=== PATIENT | male | born 1980 | race Caucasian/White ===

== ENCOUNTER → 2018-04-03 14:25 | Outpatient (CLI) | payer OTHER, SELFPAY ==
--- NOTE | 2018-04-03 14:29 | RAD_ITS ---
STUDY: X-RAY - LUMBAR SPINE REASON FOR EXAM: Male, 37 years old. Left-sided low back pain. No history of trauma. TECHNIQUE: 5 view(s) of the lumbar spine were obtained. COMPARISON: 3 views of the lumbar spine November 11, 2015. FINDINGS: Normal lumbar lordosis. There is no substantial scoliosis. There is a normal alignment of the vertebrae. There are borderline to mild foreshortened L5 pedicles and slight retrolisthesis of L5 relative to S1. Otherwise, normal vertebral bodies and endplates. Normal disc space heights. There is no demonstrated osseous destructive lesion nor fracture. Normal visualized facet joint spaces. The soft tissue structures are unremarkable. RAD/Lumbar Spine 2 or 3 Views IMPRESSION: Borderline to mild shortening of the pedicular length at L5 with minor resultant narrowing of the spinal canal at that level otherwise normal lumbar spine. Electronically Signed: Pablito Reyes MD at 14:58 EST , Service support ,
== END ==
PROVIDERS: Family Provider Family Medicine; PCP Family Medicine; Referring Provider Physician Assistant; Visit Provider Physician Assistant
DX: M54.5 Low back pain (principal)
CPT/HCPCS: 72100

== ENCOUNTER 2019-06-21 03:11 | Emergency (ER) | payer OTHER, SELFPAY ==
[2019-06-21 03:12] VITALS: BP 125/76; PULSE 67; RESP 17; TEMP 36.4; O2SAT 96; BMI 27.3
--- NOTE | 2019-06-21 03:24 | EKG12_ITS ---
Test Reason : CP Blood Pressure : / mmHG Vent. Rate : 065 BPM Atrial Rate : 065 BPM P-R Int : 178 ms QRS Dur : 106 ms QT Int : 388 ms P-R-T Axes : 040 006 017 degrees QTc Int : 403 ms Sinus rhythm with marked sinus arrhythmia Incomplete right bundle branch block Borderline ECG Confirmed by MINA HOWARD, ALTON ([id number]), publishing editor SHAW KING ([id number]) on 06/22/2019 1:20:08 PM Referred By: HODA Confirmed By:REGGIE ENRIQUEZ MD
--- NOTE | 2019-06-21 03:25 | RAD_ITS ---
STUDY: X-RAY CHEST REASON FOR EXAM: Male, 38 years old. Upper chest and left arm pain. TECHNIQUE: PA and lateral chest. COMPARISON: None. FINDINGS: The lungs are clear and expanded. There is no demonstrated pleural abnormality. No pneumothorax. Normal size heart. Normal mediastinum and jenny. Normal visualized pulmonary arteries. Normal visualized aortic arch and descending thoracic aorta. Normal visualized thoracic spine. Normal visualized ribs, clavicles, and shoulders. There is no demonstrated abnormality of the visualized soft tissue structures of the upper abdomen. RAD/Chest PA and Lateral IMPRESSION: Normal x-ray examination of the chest. Electronically Signed: Loc Paez MD at 3:56 EST , Service support ,
--- NOTE | 2019-06-21 03:25 | ED.DCSUM_ITS ---
History of Present Illness Chief Complaint: Chest Pain Informant: Patient Onset: Hours - 1-2 Activity at onset: Sleep Timing: Continuous - gradually resolved over an hour or so Quality: Pain Location: Substernal Current Severity: Gone Maximum Severity: Severe Worsened By: Nothing. Not Worsened By: Movement of Arm, Movement of Torso, Breathing, Coughing Relieved By: Nothing Associated Symptoms: - - LUE pain. Negative for: Nausea, Vomiting, Diaphoresis, Dyspnea, Cough, Lightheadedness, Palpitations Narrative: Patient states he woke up with this discomfort. He has never had it before. He is healthy although he smokes. He states as his chest discomfort started resolving, his left elbow/arm started hurting. Now, his left upper extremity is mildly bothersome but his chest discomfort is gone. He had no shortness of breath. No recent leg pain or swelling. No recent travel, hospitalization, surgery, no history of DVT or PE. No recent illnesses. No recent injury. No recent overuse. No late meal tonight. No known history of reflux or peptic ulcer disease. He states his paternal grandfather had a heart disease fairly young, his father also had heart disease but did not have any major issues until he was in his 60s. Prior Similar Symptoms: No Recent Illness/Hospitalization: No CVD Risk Factors: Smoking. Negative for: Hypertension, Diabetes, Hype rcholesterolemia, Family History 1' </=55 PE Risk Factors: Negative for: Recent Travel/Surgery, Recenet Immobilization, Prior DVT or PE, Cancer, OCP + Smoking + >/=35 Past Medical History - Allergies and Home Meds Allergies/Adverse Reactions: Allergies No Known Allergies Allergy (Verified 04/03/18 14:12) Primary Care Physician: Zana Abernathy DO [Primary Care Provider] - Past Medical History: None Lives: With Family Smoking Status: Current every day smoker Drugs: None Review of Systems General: Denies: Chills, Fever, Malaise, Sweats Eyes: Denies: Visual changes - bilaterally, Diplopia ENT: Denies: Rhinorrhea, Sore throat Cardiovascular: Reports: Chest pain. Denies: Palpitations, Heart racing Respiratory: Denies: Dyspnea, Cough, Dyspnea on exertion Gastrointestinal: Denies: Abdominal pain, Nausea, Vomiting, Diarrhea, Melena, Hematochezia Genitourinary: Denies: Dysuria, Hematuria, Frequency Musculoskeletal: Reports: Extremity Pain. Denies: Back pain, Swelling Skin: Denies: Rash, Wounds Neurological: Denies: Headache, Weakness, Numbness Physical Exam Vital Signs/Narrative: Vital Signs Temp Pulse Resp BP Pulse Ox 06/21/19 03:12 97.5 F L 67 17 125/76 H 96 Inital Vital Signs reviewed: Yes General: Well nourished, Well developed, No Acute Distress Head: Normocephalic, Atraumatic Eyes: Perrl, EOMI ENT: Moist mucous membranes, No rhinorrhea Neck: Supple, Nontender Cardiovascular: Regular rate, Regular rhythm, No murmurs, - - equal bilat 2+/4 radial pulses Respiratory: No distress, CTA bilaterally, Chest nontender Abdomen: Soft, Nontender, Nondistended, Normal bowel sounds Back: Nontender, Normal Inspection Extremities: Nontender, No edema. Negative for: Calf Tenderness Skin: Normal color, No rash, No Trauma Neurological: Alert, Oriented x3, Cranial nerves II-XII grossly intact, Normal Strength, Normal Sensation, Normal Gait Psychological: Normal affect, Normal Mood Diagnostic/Tx/Re-eval Impressions Chest X-Ray 06/21/19 03:25 IMPRESSION: Normal x-ray examination of the chest. Electronically Signed: Loc Paez MD at 3:56 EST , Service support , 06/21/19 03:25 Chest PA and Lateral [RAD] Stat Laboratory Results 06/21/19 06/21/19 03:30 03:30 WBC 5.5 RBC 4.40 L Hgb 14.4 Hct 41.5 MCV 94.3 H MCH 32.7 H MCHC 34.7 RDW Std Deviation 40.5 RDW Coeff of Zee 11.6 Plt Count 250 MPV 9.4 Immature Gran % (Auto) 0.200 Neut % (Auto) 37.6 L Lymph % (Auto) 47.5 H [place] % (Auto) 12.5 H Eos % (Auto) 1.5 Baso % (Auto) 0.7 Absolute Neuts (auto) 2.1 Absolute Lymphs (auto) 2.59 Nucleated RBC % 0 Sodium 140 Potassium 3.8 Chloride 107 Carbon Dioxide 29.0 Anion Gap 4 L BUN 15 Creatinine 1.02 Estim Creat Clear Calc 101.39 Est GFR (MDRD) Af Amer 105 Est GFR (MDRD) Non-Af 87 BUN/Creatinine Ratio 14.7 Glucose 107 H Calcium 8.8 Troponin I < 0.015 - Rhythm Strip Rhythm Strip: Sinus Rhythm Rate: 65 Ectopy: None - EKG Initial EKG Interpretation: Sinus Rhythm, No Acute Injury Pattern, - - RSR'. otherwise normal EKG. Prior: No Prior Treatment: GI Cocktail Repeat Eval: Pain Free JONATHON Risk: No Positive JONATHON Elements Score: 0 - Medical Decision Making After GI cocktail patient felt better still. He has no symptoms right now except for an occasional mild tingling in his hand. I do not think this is acute coronary syndrome. His only risk factor is smoking. He is a healthy 38-year-old. His EKG is normal. His heart score is 2, 1 for history and 1 for risk. His PERC score is 0. We discussed plan from here including a delta troponin. The patient does not want to wait 3 hours for a repeat troponin. His is a single needle operator here. She is requesting to do the troponin by drawing it herself. Patient unfortunately does not have a PCP. I suspect it will be negative, further lowering his risk of myocardial event prior to following up. 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 The result will come back to the emergency department, and myself or the morning physician will ensure that it is negative. In the meantime, my suspicion is that this is actually esophageal in etiology. It could be reflux, spasm, or other esophageal problems. His mediastinum was very narrow and his chest x-ray was normal. I do not think he needs a CT scan at this time. We will place him on a two-week course of a PPI and advised that he follow-up, his will have him follow-up with her doctor, Dr. Abernathy. They are comfortable with this overall plan. ED Disposition - Plan for ED Patient: Disposition: Home or Assisted Living Diagnosis: Chest pain, unspecified Instructions: CHEST PAIN, NonCardiac Prescriptions: Pantoprazole Sodium [Protonix] 40 mg PO DAILY #14 tab Transmission Status: Pending to [facility][id number] Referrals: Zana Abernathy DO [Primary Care Provider] - 1-2 Weeks
[2019-06-21] MEDS: Mag Hydrox/Al Hydrox/Simeth 30 ML UDC PO (03:28)
[2019-06-21 03:33] LABS: Absolute Lymphocyte Count 2.59 X10^3/uL (0.83-4.51); Absolute Neutrophil Count 2.1 X10^3/uL (2.0-7.7); Basophil# 0.04 X10^3/uL; Basophil% 0.7 % (0-1); Eosinophil# 0.08 X10^3/uL; Eosinophils% 1.5 % (0-5); Hematocrit 41.5 % (40-54); Hemoglobin 14.4 g/dL (13.0-16.5); Lymphocyte # 2.59 X10^3/ul (4.0); Lymphocyte % 47.5 % (19-41); Mean Corp Hgb Conc 34.7 g/dL (32-36); Mean Corpuscular Hgb 32.7 pg (27.0-32.0); Mean Corpuscular Volume 94.3 fL (80-94); Mean Platelet Vol. 9.4 fl (6.2-12.0); Monocyte# 0.68 X10^3/uL; Monocyte% 12.5 % (0-10); NRBC Flagged by Analyzer 0 % (0-5); Neutrophil # 2.05 X10^3/uL (2.7-7.7); Neutrophil % 37.6 % (47-70); Platelet Count 250 K/mm3 (150-450); RBC Distribution Width CV 11.6 % (11.6-14.6); RBC Distribution Width SD 40.5 fl (35.1-43.9); White Blood Count 5.5 K/mm3 (4.4-11.0)
[2019-06-21 03:50] LABS: Anion Gap 4 (5-15); BUN 15 mg/dL (7-18); BUN/Creat Ratio 14.7 RATIO (10-20); Calcium,Total 8.8 mg/dL (8.5-10.1); Chloride 107 mmol/L (98-107); Creatinine, Serum 1.02 mg/dL (0.70-1.30); EST Glomerular Filtration Rate 87 mL/min (>60); Est Glom Filt Rate - Afr Amer 105 mL/min (>60); Estimated Creatinine Clearance 101.39 ml/min; Glucose 107 mg/dL (74-106); Potassium 3.8 mmol/L (3.5-5.1); Sodium Level 140 mmol/L (136-145)
[2019-06-21 04:23] VITALS: BP 123/73; PULSE 62; RESP 18; O2SAT 97
== END 2019-06-21 04:24 | disposition home or self-care (01) ==
PROVIDERS: Emergency Provider Emergency Medicine; PCP Family Medicine
DX: R07.89 Other chest pain (principal); R20.2 Paresthesia of skin; F17.200 Nicotine dependence, unspecified, uncomplicated
CPT/HCPCS: 36415; 71046; 80048; 84484; 85025; 93005; 99285; A4216

== ENCOUNTER 2020-06-13 19:44 | Emergency (ER) | payer OTHER, SELFPAY ==
[2020-03-20 17:03] VITALS: BMI 27.8
[2020-06-13 19:45] VITALS: BP 139/70; PULSE 80; RESP 15; TEMP 36.5; O2SAT 96; BMI 26.5
--- NOTE | 2020-06-13 20:00 | ED.VISSUMM ---
- ER Visit Summary Date of Service: 06/13/20 Chief Complaint: Swelling right side of jaw History of Present Illness: The patient is a 39 M with no primary care physician or dentist. He reports that at 3:00 this afternoon he was eating on the way home from work and had a large amount of swelling to the right mandibular angle. He reports that he did not have any pain with this. It seemed to improve, but not resolved. Then when he was eating dinner it swelled up even more. He continues to deny any pain. He had denies dental pain. No hot or cold sensitivity. Review of systems: General: No fever, chills, cold sweats. Cardiovascular: No chest pain, palpitations. Respiratory: No cough, shortness of breath, dyspnea on exertion. Gastrointestinal: No abdominal pain, nausea, vomiting, diarrhea, melena, or hematochezia. Genitourinary: No dysuria, frequency, hematuria. Skin: No rash. Neuro: No headache, numbness, weakness. Physical Examination: Vitals: Stable. Afebrile. General: Well-nourished and well-developed. Head: Normocephalic atraumatic. HEENT: Mildly swollen right submandibular gland. I am unable to appreciate a stone in the sublingual salivary duct. However, as this was palpated I felt a pop and I suspect that there is some sludge present. Neck: Supple, no lymphadenopathy. No JVD. Nontender. Cardiovascular: Regular rate and rhythm. No murmurs. Respiratory: No respiratory distress. Clear to auscultation bilaterally. Abdominal: Soft, nontender, nondistended, normal bowel sounds. No guarding, rebound, or peritoneal signs. Back: Nontender. Extremities: Nontender, no edema. Skin: Normal color, no rash. Neurologic: Alert and oriented ?3. Cranial nerves II through XII are intact. Normal strength and sensation. Psych: Normal affect. Emergency Department Course and Treatment: Patient is resting comfortably and refused pain medications. He has no evidence of a dental abscess and his history is not consistent with this. Clinically I suspect that he has submandibular sialoadenitis. Treatment Plan: Patient will be discharged instructions to use lemon drops and warm compresses to the area. Follow-up with Dr. Oviedo in 3 to 5 days if not improving. Return to the emergency department for any worsening symptoms. Disposition: To home in improved and stable condition. Impression: 1. Right submandibular sialoadenitis. This note was generated with [employer] dictation software. It may contain incorrect words, spelling, and punctuation that were not noted in review of the chart prior to signing ED Disposition - Plan for ED Patient: Instructions: ED Salivary Gland Stones Referrals: Drew Oviedo MD [STAFF PHYSICIAN] - 3-5 Days if not improving
== END 2020-06-13 20:19 | disposition home or self-care (01) ==
LOC: ED 20:19
PROVIDERS: Emergency Provider Emergency Medicine; PCP Internal Medicine
DX: K11.20 Sialoadenitis, unspecified (principal)
CPT/HCPCS: 99282

== ENCOUNTER 2020-06-16 03:06 | Observation (INO) | payer OTHER, SELFPAY ==
[2020-06-16] VITALS (14 sets, daily range): BP systolic 91–139; BP diastolic 48–84; PULSE 60–140; RESP 14–20; TEMP 36.4–37.9; O2SAT 95–96; BMI 26.9; BMI 27.4; BMI 27.5
--- NOTE | 2020-06-16 03:39 | EKG12_ITS ---
Test Reason : SYNCOPE Blood Pressure : / mmHG Vent. Rate : 086 BPM Atrial Rate : 086 BPM P-R Int : 176 ms QRS Dur : 092 ms QT Int : 334 ms P-R-T Axes : 052 022 044 degrees QTc Int : 399 ms Normal sinus rhythm Probably Brugata Syndrome Abnormal ECG When compared with ECG of 21-JUN-2019 03:14, No significant change was found Confirmed by ERNESTINE HOWARD, RADHA ([id number]), design editor SHAW KING ([id number]) on 06/17/2020 11:04:43 AM Referred By: JOHANNY Confirmed By:RADHA SINHA MD
--- NOTE | 2020-06-16 03:39 | EKG12_ITS ---
Test Reason : SYNCOPE Blood Pressure : / mmHG Vent. Rate : 092 BPM Atrial Rate : 092 BPM P-R Int : 172 ms QRS Dur : 098 ms QT Int : 336 ms P-R-T Axes : 056 020 040 degrees QTc Int : 415 ms Normal sinus rhythm Probably Brugata Syndrome Abnormal ECG When compared with ECG of 16-JUN-2020 03:13, MANUAL COMPARISON REQUIRED, DATA IS UNCONFIRMED Confirmed by ERNESTINE HOWARD, RADHA ([id number]), editor managing director SHAW KING ([id number]) on 06/17/2020 11:04:16 AM Referred By: JOHANNY Confirmed By:RADHA SINHA MD
--- NOTE | 2020-06-16 03:39 | RAD_ITS ---
pt woke up not feeling well. Syncopal episode when walking to the bathroom.states he had some sob and cp when waking. states he thinks he has an irregular heartbeat EXAMINATION/TECHNIQUE: XR Chest 2 Views: COMPARISON: June 21, 2019 FINDINGS: LINES/DEVICES: None. LUNGS: No consolidation, edema or effusion. No pneumothorax. MEDIASTINUM AND CARDIOVASCULAR STRUCTURES: Cardiac silhouette not enlarged. Central airways and mediastinal contour are unremarkable. BONES AND SOFT TISSUES: Unremarkable. RAD/Chest PA and Lateral IMPRESSION: No radiographic evidence of acute cardiopulmonary disease. at 0402 Reported and signed by: Mel Macedo DO Electronically Signed: Mel Macedo DO at 4:01 EST Tel , Service support ,
--- NOTE | 2020-06-16 03:40 | ED.DCSUM_ITS ---
History of Present Illness Chief Complaint: Syncope Informant: Patient Narrative: Patient presents after syncopal episode. He stated he woke up and felt lightheaded. He went to the bathroom and had a syncopal episode. No injury. This was witnessed by his . Went back into the bedroom and had another syncopal episode. called EMS who brought him in. He states he does not have any chest pain or shortness of breath. He stated he has some mild discomfort in the front part of his neck where his trachea is at. He is never felt that for. Denies any nausea. No diaphoresis. Denies any cardiac history. No previous stress test or heart cath. Had a negative cardiac work-up appr oximately a year ago in the emergency department. He does smoke cigarettes for the last 10 years. No early heart attacks in family members under the age of 50. No other acute coronary syndrome risk factors. Denies any PE or dissection risk factors. Denies any pain time other than the sensation in his neck Past Medical History - Allergies and Home Meds Allergies/Adverse Reactions: Allergies No Known Allergies Allergy (Verified 06/13/20 19:48) Primary Care Physician: Cristina Adams MD [Primary Care Provider] - Prior records reviewed: Yes Past Medical History: - - Back pain, Smoking Status: Former smoker Review of Systems General: Denies: Chills, Fever, Sweats Eyes: Denies: Visual changes - bilaterally, Diplopia ENT: Denies: Rhinorrhea, Sore throat Cardiovascular: Denies: Chest pain, Palpitations Respiratory: Denies: Dyspnea, Cough, Dyspnea on exertion Gastrointestinal: Denies: Abdominal pain, Nausea, Vomiting, Diarrhea, Melena, Hematochezia Genitourinary: Denies: Dysuria, Hematuria, Frequency Musculoskeletal: Reports: Neck pain - See HPI. Denies: Back pain, Extremity Pain Skin: Denies: Rash, Wounds Neurological: Denies: Headache, Weakness, Numbness Physical Exam Vital Signs/Narrative: Vital Signs Temp Pulse Resp BP Pulse Ox 06/16/20 03:09 97.8 F 95 20 H 139/83 H 96 General: Well nourished, Well developed, No Acute Distress Head: Normocephalic, Atraumatic Eyes: Perrl, EOMI ENT: Moist mucous membranes, No rhinorrhea Neck: Supple, Nontender Cardiovascular: Regular rate, Regular rhythm, No murmurs Respiratory: No distress, CTA bilaterally, Chest nontender Abdomen: Soft, Nontender, Nondistended, Normal bowel sounds Back: Nontender, Normal Inspection Extremities: Nontender, No edema Skin: Normal color, No rash Neurological: Alert, Oriented x3, Cranial nerves II-XII grossly intact, Normal Strength, Normal Sensation Psychological: Normal affect, Normal Mood Diagnostic/Tx/Re-eval - Medical Decision Making Initial EKG obtained upon arrival shows sinus rhythm at a rate of 86. RSR incomplete right bundle branch block noted unchanged from prior except for V2 shows ST elevation no reciprocal depressions. No other leads show ST elevation to suggest a STEMI. Repeat EKG approximately 10 minutes later was used to confirm the initial EKG. Also noted normal sinus rhythm at a rate of [address] elevation in V2 only. Incomplete right bundle noted. He has had the right bundle in the past. No history of Brugada syndrome. This was immediately faxed to the associate account manager on-call Dr. Wood. We are not going to call an acute STEMI at this time. Patient underwent cardiac work-up including lab work and chest x- ray. Lab work shows negative troponin. Chest x-ray shows nothing acute by my interpretation. Radiologist agrees. CBC and BMP showed nothing acute. CT angio will be obtained after giving IV fluids to rule out PE or dissection. Discussed the hospitalist patient will be admitted ED Disposition - Plan for ED Patient: Disposition: Acute Care [facility] Diagnosis: Syncope, ST segment changes on electrocardiogram
[2020-06-16 03:47] LABS: Absolute Lymphocyte Count 1.17 X10^3/uL (0.83-4.51); Basophil# 0.03 X10^3/uL; Basophil% 0.3 % (0-1); Eosinophil# 0.05 X10^3/uL; Eosinophils% 0.4 % (0-5); Hematocrit 44.1 % (40-54); Hemoglobin 15.2 g/dL (13.0-16.5); Lymphocyte # 1.17 X10^3/ul (4.0); Lymphocyte % 10.1 % (19-41); Mean Corp Hgb Conc 34.5 g/dL (32-36); Mean Corpuscular Hgb 32.2 pg (27.0-32.0); Mean Corpuscular Volume 93.4 fL (80-94); Mean Platelet Vol. 9.6 fl (6.2-12.0); Monocyte# 0.33 X10^3/uL; Monocyte% 2.8 % (0-10); NRBC Flagged by Analyzer 0 % (0-5); Neutrophil # 9.97 X10^3/uL (2.7-7.7); Platelet Count 247 K/mm3 (150-450); RBC Distribution Width CV 11.5 % (11.6-14.6); RBC Distribution Width SD 39.5 fl (35.1-43.9); Red Blood Count 4.72 M/mm3 (4.6-6.2); White Blood Count 11.6 K/mm3 (4.4-11.0)
[2020-06-16 04:16] LABS: Anion Gap 5 (5-15); BUN 23 mg/dL (7-18); Calcium,Total 8.9 mg/dL (8.5-10.1); Chloride 103 mmol/L (98-107); Creatinine, Serum 1.21 mg/dL (0.70-1.30); EST Glomerular Filtration Rate 71 mL/min (>60); Est Glom Filt Rate - Afr Amer 86 mL/min (>60); Estimated Creatinine Clearance 84.63 ml/min; Glucose 112 mg/dL (74-106); Potassium 3.6 mmol/L (3.5-5.1); Sodium Level 137 mmol/L (136-145)
--- NOTE | 2020-06-16 04:19 | CT_ITS ---
SYNCOPE/? PE. No chest pain or SOB. Pt states Tquot;doesn't feel wellTquot; TECHNIQUE:CTA Chest WO/W Contrast Injection A CT of the chest was performed following the administration of ml 100mL Isovue-370 Thin axial reconstructed images were performed through the pulmonary vasculature as per the routine pulmonary embolus protocol.MIP and mutiplanar reconstructions A dose optimization technique was used during the scan # of images including paperwork:[id number] Comparison: Chest radiograph June 16, 2020 FINDINGS: No aneurysm or dissection. Pulmary arteries: No evidence of pulmonary emboli The heart is not enlarged. No evidence of right heart strain. No pericardial effusion. No pleural effusion. No axillary or mediastinal lymphadenopathy is identified. No hilar adenopathy. The thyroid gland is unremarkable The lungs are clear. Pneumpothorax: none The trachea and central airways appear patent . Limited views of the upper abdomen unremarkable No acute osseous abnormality. Hemangioma is seen within the T5 vertebral body CT/CTA Chest W/WO Contrast IMPRESSION: No aneurysm, dissection, or pulmonary embolism No evidence of right heart strain The lungs are clear Hemangioma is seen within the T5 vertebral body Individualized dose optimization techniques were used for this CT. at 0503 Reported and signed by: Mel Macedo DO Electronically Signed: Mel Macedo DO at 5:02 EST Tel , Service support ,
[2020-06-16 04:50] LABS: Magnesium 1.6 mg/dL (1.6-2.6)
--- NOTE | 2020-06-16 04:54 | PCM.HP.STD ---
Problem List (1) Back problem Status: Chronic (2) Chronic back pain Status: Chronic (3) ST segment changes on electrocardiogram Status: Acute (4) Syncope Status: Acute History of Present Illness Date of Admission: 06/16/20 Chief Complaint: Syncope The patient is a 39 year old M with no significant medical history who presents emergency department with syncope. While he was sleeping his baby cried and he woke up. Patient was feeling lightheaded and he had a feeling like something was stuck in his lower neck; same feeling he used to have when he was a smoker. Patient went to the bathroom. While in the bathroom he passed out. The next thing he remembers was that he he was sitting on the floor. His came to the bathroom and he helped help him into the bedroom. Patient then laid on the floor in the bedroom. While lying on the floor in the bedroom he passed out again. At emergency department EKG was concerning so emergent department doctor discussed the case with cardiology. Patient reports that his paternal grandfather who he did not meet probably in his 40s from a heart attack, Also patient's father had a known heart attack. Later on in the cause of his (patient's father) life he was found in the couch . Patient father at 68. Patient has room to his father from heart attack. Of note patient was at emergency department on 06/13/2020 for right facial swelling and he was diagnosed with right submandibular sialadenitis which resolved with lemon drops and drinking lots of water. Past Medical History Past Medical History (Chronic Problems): Chronic Problems (Last Reviewed 06/16/20 @ 05:[address] Ronnie Elizabeth MD) Chronic back pain (Chronic) Back problem (Chronic) Medical History: Medical History (Last Reviewed 06/16/20 @ 05:[address] Ronnie Elizabeth MD) Back problem (Chronic) M53.9 Allergies No Known Allergies Allergy (Verified 06/13/20 19:48) Home Medications: Ambulatory Orders Medication Instructions Recorded NK 06/13/20 Surgical History: Surgical History (Last Updated 03/18/20 @ 11:48 by Kyae Hand) History of shoulder surgery Z98.890 left, x 2 2002, 2006 Smoking Status: Former smoker - *Family History Maternal Family History: Family History (Last Reviewed 06/16/20 @ 05:[address] Ronnie Elizabeth MD) Father Hypertension Myocardial infarction Hyperlipemia Grandmother Alcoholism Review of Systems Constitutional: Denies: Chills, Fever, Weight Change HEENT: Denies: Head Aches, Sinus Congestion, Sinus Drainage Cardiovascular: Reports: Light Headedness. Denies: Chest Pain, Palpitations Respiratory: Denies: Cough, Shortness of breath at rest, Sputum production Gastrointestinal: Denies: Abdominal Pain, Nausea, Vomiting Genitourinary: Denies: Dysuria Musculoskeletal: Denies: Joint Pain, Joint Tenderness Skin: Denies: Rash, Wounds Neurological: Denies: Numbness, Tingling, Focal weakness Psychiatric: Denies: Anxiety, Depression, Homicidal Ideations, Suicidal Ideations Hematologic/ Lymphatic: Denies: Easy Bruising, Easy Bleeding VTE Information - Inpt Only VTE Present on Admission: No VTE Mechan Device Prophylaxis: None VTE Pharm Prophylaxis ordered?: No Reason prophylaxis not ordered:: Treatment Not Indicated - Low risk Patient Problems: Active and Suspected Problems (Last Reviewed 06/16/20 @ 05:[address] Ronnie Elizabeth MD) Syncope (Acute) ST segment changes on electrocardiogram (Acute) - Physical Exam Vitals/I&O's: Vital Signs Temp Pulse Resp BP Pulse Ox 97.8 F 95 20 H 139/83 H 96 06/16/20 03:09 06/16/20 03:09 06/16/20 03:09 06/16/20 03:09 06/16/20 03:09 Oxygen Delivery Method Room Air Weight: 85.2 kg Body Mass Index (BMI) 26.9 General: Alert, Oriented x3, Cooperative HEENT: Atraumatic, PERRLA, EOMI, Normocephalic Neck: Supple, No JVD, Negative Carotid Bruits Lungs: Clear to auscultation, Normal air movement Cardiovascular: Regular rate, No murmurs Abdomen: Bowel Sounds Present, Soft, Non Tender Extremities: No edema, Capillary Refill Less than 3 Seconds Skin: No rashes, No breakdown Musculoskeletal: No Tenderness to Palpation of Joints or Extremities Neurological: Cranial nerves II-XII grossly intact Psych/Mental Status: Anxious Laboratory Results 06/16/20 03:30: Magnesium 1.6 06/16/20 03:35: WBC 11.6 H, RBC 4.72, Hgb 15.2, Hct 44.1, MCV 93.4, MCH 32.2 H, MCHC 34.5, RDW Std Deviation 39.5, RDW Coeff of [place] 11.5 L, Plt Count 247, MPV 9.6, Immature Gran % (Auto) 0.400, Neut % (Auto) 86.0 H, Lymph % (Auto) 10.1 L, [place] % (Auto) 2.8, Eos % (Auto) 0.4, Baso % (Auto) 0.3, Absolute Neuts (auto) 10.0 H, Absolute Lymphs (auto) 1.17, Nucleated RBC % 0 06/16/20 03:35: Sodium 137, Potassium 3.6, Chloride 103, Carbon Dioxide 29.0, Anion Gap 5, BUN 23 H, Creatinine 1.21, Estim Creat Clear Calc 84.63, Est GFR (MDRD) Af Amer 86, Est GFR (MDRD) Non-Af 71, BUN/Creatinine Ratio 19.0, Glucose 112 H, Calcium 8.9, Troponin I < 0.015 Current Medications Sodium Chloride () 1,000 mls @ 1,000 mls/hr IV .Q1H ONE Stop: 06/16/20 05:18 Assessment/Plan All Active Problems (Last Reviewed 06/16/20 @ 05:[address] Ronnie Elizabeth MD) Syncope (Acute) ST segment changes on electrocardiogram (Acute) The patient is a 39 year old M with no significant medical history who presents emergency department with syncope and collapse; and with concerning EKG and family history of heart disease. Syncope EKG independently reviewed showed slanting of ST segments in leads V1 and elevation of J-point in lead V2. Previous EKG was reviewed. Previous EKG showed mild R1 R2 in leadsV1 and some pronounced are R1R2 in leads V2. Impression of chest x-ray by radiologist: No radiographic evidence of acute cardiopulmonary disease. Actual checks x-ray image was independently reviewed. I agree with radiologist interpretation. Per emergent department doctor cardiology recommended echocardiogram and for inpatient cardiology consult. Inpatient cardiology consult ordered. Echocardiogram ordered. Initial troponin was negative. Trend troponin Orthostatic vitals per protocol CTA chest ordered in the ED did not show any PE or atrial dissection. Hemangioma Chest CTA showed hemangioma. No intervention at this time. DVT prophylaxis Low risk. Encourage to ambulate. OBSV E&M: [id number] Initial observation care L2
[2020-06-16] MEDS: 0.9% Normal Saline 1,000 ML 1000 ML IV (04:59)
--- NOTE | 2020-06-16 05:27 | ECHOD_ITS ---
Reason For Study: Syncope Procedure This was a 2D Doppler, Color Flow transthoracic echocardiogram. Exam performed portable in patient room. Left Ventricle Normal LV size. Left ventricular systolic function is normal. The estimated ejection fraction is 55 %. No regional wall motion abnormalities noted. Right Ventricle Normal RV size. Normal systolic function. Atria Normal left atrium. Normal right atrium. Mitral Valve Normal mitral valve. Tricuspid Valve Normal tricuspid valve. Mild tricuspid valve insufficiency. Pulmonary artery systolic pressure is 25 mmHg. Aortic Valve Normal aortic valve. Trisinus/trileaflet aortic valve. Pulmonic Valve Normal pulmonic valve. Great Vessels Normal aortic root. The pulmonary artery is normal size. Normal inferior vena cava. Pericardium/Pleural No pericardial effusion. MMode/2D Measurements & Calculations LVIDd: 3.9 cm IVSd: 1.2 cm Ao root diam: 3.5 cm LVIDs: 2.9 cm LVPWd: 1.2 cm RVDd: 3.5 cm FS: 25.4 % LAV(MOD-bp): 37.7 ml LA A4 area: 14.9 cm2 LA dimension(2D): 3.0 cm LAV(MOD-bp) Indexed: 18.6 ml/m2 LAV(MOD-sp2): 36.2 ml LAV(MOD-sp4): 39.6 ml RA A4 area: 12.0 cm2 Doppler Measurements & Calculations MV A max [place]: 58.5 cm/sec Lat Peak E' [place]: 13.8 cm/sec Med Peak E' [place]: 8.3 cm/sec Ao V2 max: 119.1 cm/sec LV V1 max: 103.7 cm/sec PA V2 max: 80.1 cm/sec Ao max P.7 mmHg LV V1 max P.3 mmHg TR max [place]: 230.6 cm/sec TR max P.3 mmHg Interpretation Summary Normal LV size. Left ventricular systolic function is normal. The estimated ejection fraction is 55 %. Pulmonary artery systolic pressure is 25 mmHg. Structurally normal valves. Ordering Physician: Ronnie Elizabeth Referring Physician: Cristina Adams Performed By: Love Wood RDCS
--- NOTE | 2020-06-16 05:44 | PCS.PANDOC ---
PANDEMIC DOCUMENTATION INITIATED: Date: 06/16/20 Time: 05
[2020-06-16] MEDS: 0.9% Normal Saline 1,000 ML 150 ML IV ×2 (06:33→15:39)
[2020-06-16] MEDS: Magnesium Sulfate 4gm/100mL 4 GM/100 ML IV.SOLN. IV (06:38)
[2020-06-16 08:00] LABS: Bacteria 0 SEEN /hpf (None Seen); Mucous, Urine 0 SEEN /hpf (<or=2+); Red Blood Cells-Urine 0 SEEN /hpf (0-5); Squamous Epithelial Cells - UA 0 SEEN /hpf (0-5); White Blood Cells 0 SEEN /hpf (0-5)
[2020-06-16 08:04] LABS: Color, Urine Yellow (Yellow); Glucose, Dipstick Normal (Normal); Ketone-Dipstick 5 mg/dl (Negative); Leukocyte Esterase-Dipstick Negative /ul (Negative); Nitrite-Dipstick Negative (Negative); Occult Blood-Urine Negative /ul (Negative); Protein-Dipstick Negative (Negative); Urine Bilirubin Dipstick Negative (Negative); Urine Clarity Clear (Clear); Urine Urobilinogen Normal (Normal)
[2020-06-16 08:20] LABS: Amphetamine Urine VISTA NEGATIVE (<1000 ng/mL); Barbiturate Urine VISTA NEGATIVE (< 200 ng/mL); Benzodiazepine Urine VISTA NEGATIVE (< 200 ng/mL); Cocaine Urine VISTA NEGATIVE (< 300 ng/mL); Ecstacy Urine VISTA NEGATIVE (< 500 ng/mL); Methadone Urine VISTA NEGATIVE (< 300 ng/mL); PCP Urine VISTA NEGATIVE (< 25 ng/mL); THC Urine VISTA NEGATIVE (< 50 ng/mL); Vista UDS pH Range 7
[2020-06-16] MEDS: Acetaminophen 325 MG Tablet 650 MG PO ×2 (09:04→16:06)
[2020-06-16 09:58] LABS: Alcohol, Blood (Medical)-Serum < 3.0 mg/dL
[2020-06-16 10:10] LABS: AST(SGOT) 16 U/L (15-37); Alanine Aminotransfer ALT/SGPT 21 U/L (16-61); Albumin, Serum 3.9 g/dL (3.2-5.0); Alkaline Phosphatase 66 U/L (45-117); Bilirubin, Direct 0.18 mg/dL (0.00-0.30); GGTP 11 U/L (15-85); Globulin 3.5 g/dL (2.2-4.2); Protein, Total 7.4 g/dL (6.4-8.2)
[2020-06-16] MEDS: 0.9% Normal Saline 1,000 ML 500 ML IV (11:54)
--- NOTE | 2020-06-16 13:09 | EKG12_ITS ---
Test Reason : Blood Pressure : / mmHG Vent. Rate : 078 BPM Atrial Rate : 078 BPM P-R Int : 192 ms QRS Dur : 104 ms QT Int : 360 ms P-R-T Axes : 047 011 015 degrees QTc Int : 410 ms Normal sinus rhythm Cannot exclude Brugata Syndrome Normal ECG When compared with ECG of 16-JUN-2020 03:19, MANUAL COMPARISON REQUIRED, DATA IS UNCONFIRMED Confirmed by ERNESTINE HOWARD, RADHA ([id number]), sports editor SHAW KING ([id number]) on 06/17/2020 11:05:16 AM Referred By: ERNESTINE Confirmed By:RADHA SINHA MD
--- NOTE | 2020-06-16 14:56 | CON.PCM_ITS ---
Reason for Consult Date of Consultation: 06/16/20 Reason for Consultation: Syncopal episode History of Present Illness: The patient is a 39 year old M who presented to the emergency room after syncopal episode. He stated he woke up and felt lightheaded. He went to the [facility] and had a syncopal episode. This was witnessed by his . Went back into the bedroom and had another syncopal episode. called EMS who brought him in. He states he does not have any chest pain or shortness of breath. HDenies any nausea. No diaphoresis. Denies any cardiac history. No previous stress test or heart cath. Had a negative cardiac work-up approximately a year ago in the emergency department. He does smoke cigarettes for the last 10 years. No early heart attacks in family members under the age of 50. But he does have a significant history of coronary artery disease and his father and grandfather. He also consumes a fair amount of alcohol of about 12 beers at least twice a week no other acute coronary syndrome risk factors. Denies any PE or dissection risk factors. In the emergency room he was evaluated his blood work was significant for mildly decreased potassium and magnesium and an RSR noted on his EKG. He does not remember that anybody has remarked about this kind of EKG. Past Medical History Allergies/Adverse Reactions: Allergies No Known Allergies Allergy (Verified 06/16/20 05:33) Home Medications: Ambulatory Orders Medication Instructions Recorded NK 06/13/20 Past Medical History (Chronic Problems): Chronic Problems (Last Reviewed 06/16/20 @ 05:[address] Ronnie Elizabeth MD) Chronic back pain (Chronic) Back problem (Chronic) - *Family History Maternal Family History: Family History (Last Reviewed 06/16/20 @ 05:[address] Ronnie Elizabeth MD) Father Hypertension Myocardial infarction Hyperlipemia Grandmother Alcoholism Lives: Spouse/ Significant Other Smoking Status: Former smoker Alcohol: Heavy Drugs: None Review of Systems - Review of Systems General: Denies: Fever, Night Sweats, Fatigue HEENT: Denies: Vision Change Cardiovascular: Reports: Syncope. Denies: Chest Discomfort, Shortness of Breath, Orthopnea, PND, Peripheral Edema, Palpitations, Lightheadedness, Dizziness, Near Syncope Respiratory: Denies: Cough, Sputum Production, Hemoptysis Gastrointestinal: Denies: Hematemesis, Hematochezia, Melena Genitourinary: Denies: Dysuria, Hematuria Muscoloskeletal: Denies: Myalgias Skin: Denies: Rash Neurological: Denies: Dizziness Psychiatric: Denies: Anxiety Endocrine: Denies: Unexplained Weight Loss Hematologic/ Lymphatic: Denies: Anemia Subjectve: Patient seen and evaluated Objective: Vital Signs Temp Pulse Resp BP Pulse Ox 98.4 F 81 14 120/69 95 06/16/20 11:45 06/16/20 13:01 06/16/20 11:45 06/16/20 11:45 06/16/20 11:45 Oxygen Delivery Method Room Air Weight: 191 lb 8 oz Body Mass Index (BMI) 27.4 Orthostatic Vital Signs Start: 06/16/20 05:52 Freq: q24h Status: Active Protocol: Activity Type Activity Date Activity User E-Sign Co-Sign Detail Recorded Client Recorded Date Recorded By Document 06/16/20 05:52 [id number] 06/16/20 05:59 06/16/20 05:52 Orthostatic Vitals Sitting -Blood Pressure (90/60-120/80) 121/81 H -Extremity Use Right Arm -Pulse Rate (60-100) 123 H Standing -Blood Pressure (90/60-120/80) 91/52 L -Extremity Use Right Arm -Pulse Rate (60-100) 126 H Lying -Blood Pressure (90/60-120/80) 129/82 H -Extremity Use Right Arm -Pulse Rate (60-100) 100 Intake and Output for Last 24 Hours 06/14/20 06/15/20 06/16/20 23:59 23:59 23:59 Intake Total 3712.5 / 3712.5 Output Total 1250 / 1250 Balance 2462.5 / 2462.5 General: Awake, Alert, Oriented x 3 HEENT: PERRL, EOMI, Sclera Non Icteric Neck: Supple, Good ROM, No Lymph Node Enlargement Lungs: Clear to auscultation Cardiovascular: Regular Rhythm, Normal S1, Normal S2, No Murmurs, No Rubs, No Gallops Vascular: No Carotid Bruits, Normal Femoral Pulses, Normal Radial Pulses, Normal Dorsalis Pedal Pulse, Normal Posterior Tibial Pulses Abdomen: Bowel Sounds Present, Soft, Non Tender, No HSM, No Organomegaly Extremities: No Cyanosis, No Clubbing, No edema Musculoskeletal: No Erythema Skin: No Rashes Lymphatic: No Lymph Node Enlargement Neurological: No Focal Motor or Sensory Deficit Psych/Mental Status: Appropriate 06/16/20 03:30: Magnesium 1.6 06/16/20 03:35: WBC 11.6 H, RBC 4.72, Hgb 15.2, Hct 44.1, MCV 93.4, MCH 32.2 H, MCHC 34.5, Plt Count 247, MPV 9.6, Immature Gran % (Auto) 0.400, Neut % (Auto) 86.0 H, Lymph % (Auto) 10.1 L, [place] % (Auto) 2.8, Eos % (Auto) 0.4, Baso % (Auto) 0.3, Absolute Neuts (auto) 10.0 H, Nucleated RBC % 0 06/16/20 03:35: Sodium 137, Potassium 3.6, Chloride 103, Carbon Dioxide 29.0, Anion Gap 5, BUN 23 H, Creatinine 1.21, Est GFR (MDRD) Af Amer 86, Est GFR (MDRD) Non-Af 71, BUN/Creatinine Ratio 19.0, Glucose 112 H, Calcium 8.9, Troponin I < 0.015 06/16/20 06:05: Troponin I < 0.015 06/16/20 07:50: Urine Color Yellow, Urine Clarity Clear, Urine pH 8.0, Ur Specific [place] 1.010, Urine Protein Negative, Urine Glucose (UA) Normal, Urine Ketones 5 H, Urine Occult Blood Negative, Urine Nitrite Negative, Urine Bilirubin Negative, Urine Urobilinogen Normal, Ur Leukocyte Esterase Negative, Urine RBC 0 SEEN, Urine WBC 0 SEEN 06/16/20 09:15: Total Bilirubin 1.00, Direct Bilirubin 0.18, Troponin I < 0.015 Rhythm: EKG: Normal sinus rhythm with RSR hump seen in V2, and no other abnormalities. Brugada syndrome needs to be considered ECHO: Preserved left ventricular systolic function Stress Test: Cardiac Cath: PCI: CT Surgery: Holter monitor: EPS: PPM: CXR: Chest CT Scan: Assessment/Plan 1. Syncopal episode * Patient presents with a syncopal episode and appears to be orthostatic. His EKG however is rather concerning for Brugada abnormality. I would not be surprised if the above was exacerbated by his alcohol use leading to mild electrolyte abnormalities as well as dehydration. * His echocardiogram demonstrates preserved left ventricular systolic function. * He should continue with fluid rehydration but I would like his EKG to be forwarded to an epic kaleidoscope analyst for an opinion before further recommendations made. * He does have a significant family history of coronary disease but I do not think that this is coronary related. * * Thank you for allowing me to participate in the care of your patient. Please don't hesitate to call if any issues arise.
--- NOTE | 2020-06-16 15:46 | CCHN_ITS ---
Hospitalist Note Seen and examined Heart rate and blood pressure controlled. Orthostatic vitals are positive, BP dropped 129/82-91/52 on standing and heart rate branden 100-1 26 per note. Patient said to Dr. Lau that he had diarrhea for 2 to 3 days but he denied to me. He drinks alcohol on and Tuesday about 2-3 bottles of beer. COVID-19 PCR negative. Physical exam General: Alert, Oriented x3, Cooperative HEENT: Atraumatic, PERRLA, EOMI, Normocephalic Oral: No Gingival or Mucosal Lesions/ Ulcerations Neck: Supple, No JVD, Negative Carotid Bruits Lungs: Air entry diminished in bilateral lung bases. No crepitation/rhonchi Cardiovascular: Regular rate, Regular Rhythm, Normal S1, Normal S2, No murmurs Abdomen: Bowel Sounds Present, Soft, Non Tender, Non-Distended : No renal angle tenderness. No suprapubic tenderness. Extremities: No edema, Capillary Refill Less than 3 Seconds Skin: No rashes, No breakdown Musculoskeletal: No Tenderness to Palpation of Joints or Extremities Neurological: Cranial nerves II-XII grossly intact, Deep Tendon Reflexes 2+/4 and Symmetrical, Neuro grossly intact Psych/Mental Status: Normal Affect, Appropriate. Lead EKG reviewed. It is rSr' pattern in V1 and V2. It is further discussed with Dr. Lau and he said he will confirm with EP which seems probably Brugada syndrome. Serial troponins are negative. Serum alcohol negative. GGT level. Liver chemistry within normal limits. UA negative. U tox negative. Patient was admitted with syncope after he had lightheaded early in the morning. He passed out in the bathroom. 1. Syncope related to orthostatic hypotension from diarrhea: 1 L of IV fluid normal saline given on the floor and then 150 mill per hour. Sodium 137. K3.6. Hand Candle Dipper has been consulted. 2. Incidental finding of hemangioma on T5 vertebral body in chest CTA 3. VTE prophylaxis: Low risk. Clinical Impression(s) from Imaging Studies Chest X-Ray 06/16/20 03:39 IMPRESSION: No radiographic evidence of acute cardiopulmonary disease. Chest CTA 06/16/20 04:19 IMPRESSION: No aneurysm, dissection, or pulmonary embolism No evidence of right heart strain The lungs are clear Hemangioma is seen within the T5 vertebral body Individualized dose optimization techniques were used for this CT.
[2020-06-17] VITALS (8 sets, daily range): BP systolic 112–139; BP diastolic 62–75; PULSE 62–71; RESP 16–18; TEMP 36.6–37.1; O2SAT 94–97
[2020-06-17] MEDS: Acetaminophen 325 MG Tablet 650 MG PO (03:12)
[2020-06-17 06:56] LABS: Absolute Lymphocyte Count 1.65 X10^3/uL (0.83-4.51); Absolute Neutrophil Count 7.4 X10^3/uL (2.0-7.7); Basophil# 0.03 X10^3/uL; Basophil% 0.3 % (0-1); Eosinophil# 0.06 X10^3/uL; Eosinophils% 0.6 % (0-5); Hemoglobin 13.4 g/dL (13.0-16.5); Lymphocyte # 1.65 X10^3/ul (4.0); Mean Corp Hgb Conc 34.4 g/dL (32-36); Mean Corpuscular Hgb 32.1 pg (27.0-32.0); Mean Corpuscular Volume 93.3 fL (80-94); Mean Platelet Vol. 9.4 fl (6.2-12.0); Monocyte# 0.56 X10^3/uL; Monocyte% 5.8 % (0-10); NRBC Flagged by Analyzer 0 % (0-5); Neutrophil # 7.36 X10^3/uL (2.7-7.7); Neutrophil % 75.9 % (47-70); Platelet Count 210 K/mm3 (150-450); RBC Distribution Width CV 11.7 % (11.6-14.6); RBC Distribution Width SD 39.6 fl (35.1-43.9); Red Blood Count 4.18 M/mm3 (4.6-6.2); White Blood Count 9.7 K/mm3 (4.4-11.0)
[2020-06-17 07:21] LABS: Anion Gap 5 (5-15); BUN 11 mg/dL (7-18); BUN/Creat Ratio 11.6 RATIO (10-20); Calcium,Total 8.6 mg/dL (8.5-10.1); Chloride 108 mmol/L (98-107); Creatinine, Serum 0.95 mg/dL (0.70-1.30); EST Glomerular Filtration Rate 94 mL/min (>60); Est Glom Filt Rate - Afr Amer 114 mL/min (>60); Estimated Creatinine Clearance 107.79 ml/min; Glucose 93 mg/dL (74-106); Potassium 3.9 mmol/L (3.5-5.1); Sodium Level 138 mmol/L (136-145)
--- NOTE | 2020-06-17 07:33 | EKG12_ITS ---
Test Reason : RHYTHMN CHANGE Blood Pressure : / mmHG Vent. Rate : 058 BPM Atrial Rate : 058 BPM P-R Int : 172 ms QRS Dur : 106 ms QT Int : 388 ms P-R-T Axes : 049 012 021 degrees QTc Int : 380 ms Sinus bradycardia Otherwise normal ECG Confirmed by IVAN HOWARD, MARIA ESTHER ([id number]), movie editor YANELIS COBIAN ([id number]) on 06/19/2020 11:47:49 AM Referred By: ERNESTINE Confirmed By:MARIA ESTHER LOVE MD
--- NOTE | 2020-06-17 07:41 | PN.CARD_ITS ---
Subjectve: Patient seen and evaluated. Appears to be doing better this morning. Objective: Vital Signs Temp Pulse Resp BP Pulse Ox 98.0 F 62 16 124/67 H 95 06/17/20 06:08 06/17/20 06:08 06/17/20 06:08 06/17/20 06:08 06/17/20 06:08 Oxygen Delivery Method Room Air Weight: 191 lb 8 oz Body Mass Index (BMI) 27.4 Orthostatic Vital Signs Start: 06/16/20 05:52 Freq: q24h Status: Active Protocol: Activity Type Activity Date Activity User E-Sign Co-Sign Detail Recorded Client Recorded Date Recorded By Document 06/17/20 05:52 MY [id number] 06/17/20 06:15 MY 06/17/20 05:52 Orthostatic Vitals Sitting -Blood Pressure (90/60-120/80) 112/75 -Extremity Use Right Arm Standing -Blood Pressure (90/60-120/80) 139/71 H -Extremity Use Right Arm Lying -Blood Pressure (90/60-120/80) 124/67 H -Extremity Use Right Arm Intake and Output for Last 24 Hours 06/15/20 06/16/20 06/17/20 23:59 23:59 23:59 Intake Total 5620.0 / 5740.0 240 / 240 Output Total 1250 / 2300 1550 / 1550 Balance 4370.0 / 3440.0 -1310 / -1310 General: Awake, Alert, Oriented x 3 HEENT: PERRL, EOMI, Sclera Non Icteric Neck: Supple, Good ROM, No Lymph Node Enlargement Lungs: Clear to auscultation Cardiovascular: Regular Rhythm, Normal S1, Normal S2, No Murmurs, No Rubs, No Gallops 06/16/20 07:50: Urine Color Yellow, Urine Clarity Clear, Urine pH 8.0, Ur Specif ic [place] 1.010, Urine Protein Negative, Urine Glucose (UA) Normal, Urine Ketones 5 H, Urine Occult Blood Negative, Urine Nitrite Negative, Urine Bilirubin Negative, Urine Urobilinogen Normal, Ur Leukocyte Esterase Negative, Urine RBC 0 SEEN, Urine WBC 0 SEEN 06/16/20 09:15: Total Bilirubin 1.00, Direct Bilirubin 0.18, Troponin I < 0.015 06/17/20 06:40: WBC 9.7, RBC 4.18 L, Hgb 13.4, Hct 39.0 L, MCV 93.3, MCH 32.1 H, MCHC 34.4, Plt Count 210, MPV 9.4, Immature Gran % (Auto) 0.400, Neut % (Auto) 75.9 H, Lymph % (Auto) 17.0 L, [place] % (Auto) 5.8, Eos % (Auto) 0.6, Baso % (Auto) 0.3, Absolute Neuts (auto) 7.4, Nucleated RBC % 0 06/17/20 06:40: Sodium 138, Potassium 3.9, Chloride 108 H, Carbon Dioxide 25.0, Anion Gap 5, BUN 11, Creatinine 0.95, Est GFR (MDRD) Af Amer 114, Est GFR (MDRD) Non-Af 94, BUN/Creatinine Ratio 11.6, Glucose 93, Calcium 8.6 Rhythm: EKG: ECHO: Stress Test: Cardiac Cath: PCI: CT Surgery: Holter monitor: EPS: PPM: CXR: Chest CT Scan: Medical Necessity - Tobacco Use Smoking Status: Former smoker Assessment/Plan 1. Syncopal episode * Patient presents with a syncopal episode and appears to be orthostatic. His EKG however is rather concerning for Brugada abnormality. I would not be meera prised if the above was exacerbated by his alcohol use leading to mild electrolyte abnormalities as well as dehydration. * His echocardiogram demonstrates preserved left ventricular systolic function. * He should continue with fluid rehydration but I would like his EKG to be forwarded to an supervisor audit clerks for an opinion before further recommendations made. This was done and a repeat EKG will be done this morning and then further recommendations made. * He does have a significant family history of coronary disease but I do not think that this is coronary related. * * Thank you for allowing me to participate in the care of your patient. Please don't hesitate to call if any issues arise.
--- NOTE | 2020-06-17 07:42 | EKG12_ITS ---
Test Reason : RHYTHMN CHANGE Blood Pressure : / mmHG Vent. Rate : 062 BPM Atrial Rate : 062 BPM P-R Int : 174 ms QRS Dur : 106 ms QT Int : 382 ms P-R-T Axes : 048 013 019 degrees QTc Int : 387 ms Normal sinus rhythm Normal ECG Confirmed by IVAN HOWARD, MARIA ESTHER ([id number]), legal editor SHAW KING ([id number]) on 06/17/2020 3:00:37 PM Referred By: ERNESTINE Confirmed By:MARIA ESTHER LOVE MD
--- NOTE | 2020-06-17 07:56 | PCM.PN.HOSP ---
Patient Problems: Active and Suspected Problems (Last Reviewed 06/16/20 @ 05:[address] Ronnie Elizabeth MD) Syncope (Acute) ST segment changes on electrocardiogram (Acute) Vitals/I&O's: Vital Signs Temp Pulse Resp BP Pulse Ox 98.0 F 64 16 124/67 H 95 06/17/20 06:08 06/17/20 07:45 06/17/20 06:08 06/17/20 06:08 06/17/20 06:08 Oxygen Delivery Method Room Air Weight: 191 lb 8 oz Body Mass Index (BMI) 27.4 Orthostatic Vital Signs Start: 06/16/20 05:52 Freq: q24h Status: Active Protocol: Activity Type Activity Date Activity User E-Sign Co-Sign Detail Recorded Client Recorded Date Recorded By Document 06/17/20 05:52 MY [id number] 06/17/20 06:15 MY 06/17/20 05:52 Orthostatic Vitals Sitting -Blood Pressure (90/60-120/80) 112/75 -Extremity Use Right Arm Standing -Blood Pressure (90/60-120/80) 139/71 H -Extremity Use Right Arm Lying -Blood Pressure (90/60-120/80) 124/67 H -Extremity Use Right Arm Intake and Output for Last 24 Hours 06/15/20 06/16/20 06/17/20 23:59 23:59 23:59 Intake Total 5620.0 / 5740.0 240 / 240 Output Total 1250 / 2300 1550 / 1550 Balance 4370.0 / 3440.0 -1310 / -1310 Laboratory Results 06/16/20 07:50: Urine Opiates Screen NEGATIVE, Urine Methadone Screen NEGATIVE, Ur Barbiturates Screen NEGATIVE, Ur Phencyclidine Scrn NEGATIVE, Ur Amphetamines Screen NEGATIVE, U Methamphetamin-MDMA NEGATIVE, U Benzodiazepines Scrn NEGATIVE, Urine Cocaine Screen NEGATIVE, U Cannabinoids Screen NEGATIVE, Ur Drug Screen Comment 06/16/20 07:50: Urine Color Yellow, Urine Clarity Clear, Urine pH 8.0, Ur Specific [place] 1.010, Urine Protein Negative, Urine Glucose (UA) Normal, Urine Ketones 5 H, Urine Occult Blood Negative, Urine Nitrite Negative, Urine Bilirubin Negative, Urine Urobilinogen Normal, Ur Leukocyte Esterase Negative, Urine RBC 0 SEEN, Urine WBC 0 SEEN, Ur Squamous Epith Cells 0 SEEN, Urine Bacteria 0 SEEN, Urine Mucus 0 SEEN 06/16/20 08:20: COVID-19 (STEVE) Not Detected 06/16/20 09:15: Total Bilirubin 1.00, Direct Bilirubin 0.18, GGT 11 L, AST 16, ALT 21, Alkaline Phosphatase 66, Troponin I < 0.015, Total Protein 7.4, Albumin 3.9, Globulin 3.5 06/16/20 09:15: Ethyl Alcohol < 3.0 06/17/20 06:40: WBC 9.7, RBC 4.18 L, Hgb 13.4, Hct 39.0 L, MCV 93.3, MCH 32.1 H, MCHC 34.4, RDW Std Deviation 39.6, RDW Coeff of Zee 11.7, Plt Count 210, MPV 9.4, Immature Gran % (Auto) 0.400, Neut % (Auto) 75.9 H, Lymph % (Auto) 17.0 L, [place] % (Auto) 5.8, Eos % (Auto) 0.6, Baso % (Auto) 0.3, Absolute Neuts (auto) 7.4, Absolute Lymphs (auto) 1.65, Nucleated RBC % 0 06/17/20 06:40: Sodium 138, Potassium 3.9, Chloride 108 H, Carbon Dioxide 25.0, Anion Gap 5, BUN 11, Creatinine 0.95, Estim Creat Clear Calc 107.79, Est GFR (MDRD) Af Amer 114, Est GFR (MDRD) Non-Af 94, BUN/Creatinine Ratio 11.6, Glucose 93, Calcium 8.6 Current Medications Acetaminophen (Acetaminophen 325 Mg Tablet) 650 mg PO Q6H PRN PRN PRN Reason: Pain Score 1-10/Temp > 100.7 F Last Admin: 06/17/20 03:12 Dose: 650 mg Documented by: Sodium Chloride () 250 mls @ 15 mls/hr IV .[id number] PRN PRN Reason: Saline Flush Sodium Chloride () 250 mls @ 15 mls/hr IV .[id number] PRN PRN Reason: Additional IVPB Infusion Ondansetron HCl (Ondansetron 4 Mg/2 Ml Vial) 4 mg IV Q8H PRN PRN PRN Reason: NAUSEA/VOMITING Sodium Chloride (0.9% Saline Lock 10 Ml Syringe) 10 - 40 ml IV UD PRN PRN Reason: SALINE FLUSH STROKE Vital Signs/Narrative: Vital Signs Temp Pulse Resp BP BP BP BP 06/17/20 07:45 64 06/17/20 06:08 98.0 F 62 16 124/67 H 06/17/20 05:52 124/67 H 112/75 139/71 H Pulse Ox 06/17/20 07:45 06/17/20 06:08 95 06/17/20 05:52 Medical Necessity - Tobacco Use Smoking Status: Former smoker Assessment/Plan All Active Problems (Last Reviewed 06/16/20 @ 05:[address] Ronnie Elizabeth MD) Syncope (Acute) ST segment changes on electrocardiogram (Acute)
--- NOTE | 2020-06-17 11:23 | DCINST_ITS ---
- Discharge Diagnoses Current Active Problems: Current Active and Chronic Problems (Last Reviewed 06/16/20 @ 05:[address] Ronnie Elizabeth MD) Syncope (Acute) ST segment changes on electrocardiogram (Acute) Chronic back pain (Chronic) Back problem (Chronic) You will use the following diet at home:: Cardiac Discharge Activity: May Not Drive - for 2 week until sees PCP Weight Bearing Status: Weight bearing as tolerated Call your doctor if you observe: Fever of 101 or Higher, Coldness, Increased Pain, Numbness or Tingling, Change in Color, Inability to urinate, Inability to have a bowel movement, Shortness of breath, Dizziness, Fainting spells, Swelling in the ankles, Chest pain, Prolonged hiccoughing, Increased palpitations (irregular heartbeat), Calf discomfort, Uncontrolled pain Allergies/Adverse Reactions: Allergies No Known Allergies Allergy (Verified 06/16/20 05:33) Medications to take at Discharge NK 06/13/20 Primary Care Physician: Cristina Adams MD [Primary Care Provider] - Please follow up with your Primary Care Physician in: IN 2 WEEKS Test Results: Test results from this visit will be discussed in further detail at your follow- up appointment, if applicable. Please Follow Up With: Ervin Lau MD When: IN 4 WEEK
--- NOTE | 2020-06-17 11:24 | DS.PCM_ITS ---
Discharge Date and Diagnosis - Problem List Patient Problems: Active and Suspected Problems (Last Reviewed 06/16/20 @ 05:[address] Ronnie Elizabeth MD) Syncope (Acute) ST segment changes on electrocardiogram (Acute) Date of Admission: 06/16/20 Date of Discharge: 06/17/20 - Primary Discharge Diagnosis Acute Problems: Active Problems (Last Reviewed 06/16/20 @ 05:[address] Ronnie Elizabeth MD) Syncope (Acute) ST segment changes on electrocardiogram (Acute) - Secondary Discharge Diagnosis Chronic Problems: Chronic Problems (Last Reviewed 06/16/20 @ 05:[address] Ronnie Elizabeth MD) Chronic back pain (Chronic) Back problem (Chronic) Hospital Course and Treatment Summary of Care Provided: The patient is a 39 year old M with no significant past medical history was admitted for syncope. Patient felt lightheaded when he woke up from sleep after his baby cried and then passed out in the bathroom. Patient was admitted in the PCU. Later on he said he had loose bowel movement for 2 to 3 days. He also drinks 2-3 bottles of beer on and Tuesday. COVID-19 PCR negative. Orthostatic vitals were positive; BP dropped 129/82-91/52 on standing and heart rate branden 100-126/m. Patient was well hydrated with IV fluid sodium chloride bolus initially and then continuous infusion. Patient clinically felt better. Engineering Equipment Operator was consulted for abnormal EKG rSr' pattern in V1 and V2. As per Dr. Lau, there was some concern of Brugada syndrome. 2D echo shows preserved LV systolic function. It was thought EKG abnormality may be from metabolic abnormality as patient was dehydrated and potassium 3.6. I also discussed with the outside it security analyst but currently needs more follow-up as an outpa tient. This was discussed with the patient and his . Patient discharged home. Incidental finding of hemangioma in T5 vertebral body on chest CTA. Discharge medication reconciliation done. Discharge follow-up instructions completed. Discharge process discussed with the patient and all questions were answered to patient's satisfaction. Total time spent, exact 35 minutes on discharge meds reconciliation, examination, coordination of care with nurses and ancillary staff, review of imaging and blood test and discussion with the patient on follow-up instructions Patient Problems: Active and Suspected Problems (Last Reviewed 06/16/20 @ 05:[address] Ronnie Elizabeth MD) Syncope (Acute) ST segment changes on electrocardiogram (Acute) Objective: Patient's heart rate and blood pressure are in normal range. Patient's orthostatic hypotension resolved. Patient is well hydrated. Physical exam Physical exam General: Alert, Oriented x3, Cooperative HEENT: Atraumatic, PERRLA, EOMI, Normocephalic Oral: No Gingival or Mucosal Lesions/ Ulcerations Neck: Supple, No JVD, Negative Carotid Bruits Lungs: Air entry equal in bilateral lung bases. No crepitation/rhonchi Cardiovascular: Regular rate, Regular Rhythm, Normal S1, Normal S2, No murmurs Abdomen: Bowel Sounds Present, Soft, Non Tender, Non-Distended : No renal angle tenderness. No suprapubic tenderness. Extremities: No edema, Capillary Refill Less than 3 Seconds Skin: No rashes, No breakdown Musculoskeletal: No Tenderness to Palpation of Joints or Extremities Neurological: Cranial nerves II-XII grossly intact, Deep Tendon Reflexes 2+/4 and Symmetrical, Neuro grossly intact Psych/Mental Status: Normal Affect, Appropriate. - Physical Exam Vitals/I&O's: Vital Signs Temp Pulse Resp BP Pulse Ox 97.9 F 64 16 112/74 95 06/17/20 08:45 06/17/20 08:45 06/17/20 08:45 06/17/20 08:45 06/17/20 08:45 Oxygen Delivery Method Room Air Weight: 191 lb 8 oz Body Mass Index (BMI) 27.4 Orthostatic Vital Signs Start: 06/16/20 05:52 Freq: q24h Status: Active Protocol: Activity Type Activity Date Activity User E-Sign Co-Sign Detail Recorded Client Recorded Date Recorded By Document 06/17/20 05:52 MY [id number] 06/17/20 06:15 MY 06/17/20 05:52 Orthostatic Vitals Sitting -Blood Pressure (90/60-120/80) 112/75 -Extremity Use Right Arm Standing -Blood Pressure (90/60-120/80) 139/71 H -Extremity Use Right Arm Lying -Blood Pressure (90/60-120/80) 124/67 H -Extremity Use Right Arm Intake and Output for Last 24 Hours 06/15/20 06/16/20 06/17/20 23:59 23:59 23:59 Intake Total 5620.0 / 5740.0 240 / 240 Output Total 1250 / 2300 1550 / 1550 Balance 4370.0 / 3440.0 -1310 / -1310 Microbiology Past 72 Hours 06/16/20 07:50 Urine, Clean Catch Urine Culture - Preliminary Culture exhibits no growth. Laboratory Results 06/16/20 08:20: COVID-19 (STEVE) Not Detected 06/17/20 06:40: WBC 9.7, RBC 4.18 L, Hgb 13.4, Hct 39.0 L, MCV 93.3, MCH 32.1 H, MCHC 34.4, RDW Std Deviation 39.6, RDW Coeff of Zee 11.7, Plt Count 210, MPV 9.4, Immature Gran % (Auto) 0.400, Neut % (Auto) 75.9 H, Lymph % (Auto) 17.0 L, [place] % (Auto) 5.8, Eos % (Auto) 0.6, Baso % (Auto) 0.3, Absolute Neuts (auto) 7.4, Absolute Lymphs (auto) 1.65, Nucleated RBC % 0 06/17/20 06:40: Sodium 138, Potassium 3.9, Chloride 108 H, Carbon Dioxide 25.0, Anion Gap 5, BUN 11, Creatinine 0.95, Estim Creat Clear Calc 107.79, Est GFR (MDRD) Af Amer 114, Est GFR (MDRD) Non-Af 94, BUN/Creatinine Ratio 11.6, Glucose 93, Calcium 8.6 Current Medications Acetaminophen (Acetaminophen 325 Mg Tablet) 650 mg PO Q6H PRN PRN PRN Reason: Pain Score 1-10/Temp > 100.7 F Last Admin: 06/17/20 03:12 Dose: 650 mg Documented by: Sodium Chloride () 250 mls @ 15 mls/hr IV .[id number] PRN PRN Reason: Saline Flush Sodium Chloride () 250 mls @ 15 mls/hr IV .[id number] PRN PRN Reason: Additional IVPB Infusion Ondansetron HCl (Ondansetron 4 Mg/2 Ml Vial) 4 mg IV Q8H PRN PRN PRN Reason: NAUSEA/VOMITING Sodium Chloride (0.9% Saline Lock 10 Ml Syringe) 10 - 40 ml IV UD PRN PRN Reason: SALINE FLUSH Discharge Activity: May Not Drive - for 2 week until sees PCP Weight Bearing Status: Weight bearing as tolerated Call your doctor if you observe: Fever of 101 or Higher, Coldness, Increased Pain, Numbness or Tingling, Change in Color, Inability to urinate, Inability to have a bowel movement, Shortness of breath, Dizziness, Fainting spells, Swelling in the ankles, Chest pain, Prolonged hiccoughing, Increased palpitations (irregular heartbeat), Calf discomfort, Uncontrolled pain Home Medications: Medications to take at Discharge NK 06/13/20 Primary Care Physician: Cristina Adams MD [Primary Care Provider] - Please follow up with your Primary Care Physician in: IN 2 WEEKS Please Follow Up With: Ervin Lau MD When: IN 4 WEEK Medical Necessity - Tobacco Use Smoking Status: Former smoker Meaningful Use Info Meaningful Use Diagnoses (Choose all that apply): None applicable OBSV E&M: 76529 Observation care discharge
== END 2020-06-17 11:46 | disposition home or self-care (01) ==
LOC: ED 04:25 → PCU 04:55
PROVIDERS: Admitting Provider Hospitalist; Emergency Provider Emergency Medicine; PCP Internal Medicine; Visit Provider Internal Medicine
DX: I95.1 Orthostatic hypotension (principal); I45.10 Unspecified right bundle-branch block; Z87.891 Personal history of nicotine dependence; Z82.49 Family history of ischemic heart disease and other diseases of the circulatory system; D18.09 Hemangioma of other sites; R19.7 Diarrhea, unspecified
CPT/HCPCS: 36415; 71046; 71275; 80048; 80076; 80307; 81001; 82077; 82977; 83735; 84484; 85025; 87040; 87086; 87635; 93005; 93306; 96360; 96361; 99218; 99285; 99406; J7030; Q9967; A4216; G0378; U0002

== ENCOUNTER → 2020-06-23 11:02 | Outpatient (CLI) | payer OTHER, SELFPAY ==
[2020-06-16 05:29] VITALS: BMI 27.4
[2020-06-23 11:46] LABS: Absolute Lymphocyte Count 1.31 X10^3/uL (0.83-4.51); Absolute Neutrophil Count 1.9 X10^3/uL (2.0-7.7); Basophil# 0.02 X10^3/uL; Basophil% 0.5 % (0-1); Eosinophil# 0.03 X10^3/uL; Eosinophils% 0.8 % (0-5); Hematocrit 41.1 % (40-54); Hemoglobin 14.2 g/dL (13.0-16.5); Lymphocyte # 1.31 X10^3/ul (4.0); Lymphocyte % 34.7 % (19-41); Mean Corp Hgb Conc 34.5 g/dL (32-36); Mean Corpuscular Hgb 32.1 pg (27.0-32.0); Mean Corpuscular Volume 92.8 fL (80-94); Mean Platelet Vol. 9.5 fl (6.2-12.0); Monocyte# 0.55 X10^3/uL; Monocyte% 14.6 % (0-10); NRBC Flagged by Analyzer 0 % (0-5); Neutrophil # 1.86 X10^3/uL (2.7-7.7); Neutrophil % 49.1 % (47-70); Platelet Count 312 K/mm3 (150-450); RBC Distribution Width CV 11.5 % (11.6-14.6); RBC Distribution Width SD 39.2 fl (35.1-43.9); Red Blood Count 4.43 M/mm3 (4.6-6.2); White Blood Count 3.8 K/mm3 (4.4-11.0)
[2020-06-23 12:06] LABS: ALB/GLOB Ratio 1.1 RATIO (0.9-2.4); AST(SGOT) 15 U/L (15-37); Alanine Aminotransfer ALT/SGPT 25 U/L (16-61); Albumin, Serum 3.8 g/dL (3.2-5.0); Alkaline Phosphatase 62 U/L (45-117); Anion Gap 7 (5-15); BUN 16 mg/dL (7-18); BUN/Creat Ratio 14.8 RATIO (10-20); Chloride 104 mmol/L (98-107); Creatinine, Serum 1.08 mg/dL (0.70-1.30); EST Glomerular Filtration Rate 81 mL/min (>60); Est Glom Filt Rate - Afr Amer 98 mL/min (>60); Globulin 3.4 g/dL (2.2-4.2); Glucose 98 mg/dL (74-106); Magnesium 2.3 mg/dL (1.6-2.6); Potassium 3.8 mmol/L (3.5-5.1); Protein, Total 7.2 g/dL (6.4-8.2); Sodium Level 139 mmol/L (136-145); T4 Free Direct 0.98 ng/dL (0.76-1.46); Thyroid Stim Hormone (TSH) 0.77 uIU/mL (0.358-3.74)
== END ==
LOC: LAB 11:05
PROVIDERS: PCP Internal Medicine; Referring Provider Internal Medicine; Visit Provider Internal Medicine
DX: I49.9 Cardiac arrhythmia, unspecified (principal)
CPT/HCPCS: 36415; 80053; 83735; 84439; 84443; 85025

== ENCOUNTER → 2020-06-24 09:07 | Outpatient (CLI) | payer OTHER, SELFPAY ==
[2020-06-24 11:34] LABS: Cholesterol 172 mg/dL (200); High Density Lipoprotein 33 mg/dL; Triglycerides 111 mg/dL; Very Low Density Lipoprotein 22 mg/dL (5-40)
== END ==
LOC: BIMLAB 09:09
PROVIDERS: PCP Internal Medicine; Referring Provider Internal Medicine; Visit Provider Internal Medicine
DX: I49.9 Cardiac arrhythmia, unspecified (principal); E78.01 Familial hypercholesterolemia
CPT/HCPCS: 36415; 80061

== ENCOUNTER 2020-07-25 10:20 | Emergency (ER) | payer OTHER, SELFPAY ==
[2020-07-04 09:48] VITALS: BMI 26.5
[2020-07-25 10:21] VITALS: BP 143/76; PULSE 68; RESP 16; TEMP 36.4; O2SAT 96; BMI 26.5
--- NOTE | 2020-07-25 10:34 | ED.DCSUM_ITS ---
- ER Visit Summary Date of Service: 07/25/20 Chief Complaint: Possible allergic reaction History of Present Illness: The patient is a 39 M who presents with possible allergic reaction that occurred last night. Patient states he ate some [place] food last night before he went to bed. Patient states it was from a different [place] restaurant them what he normally orders from. Patient states that after he ate this he felt like there was some swelling in his throat. Patient also noted some hives. Patient states he was having some itching all over. Patient states he took some Benadryl last night which did help. Patient states that today when he woke up he still felt like his throat was swollen. Patient denies any shortness of breath. Patient denies any fevers or chills. Physical Examination: Vital signs are stable. Patient is afebrile. Patient is in no acute distress. Oral mucosa is pink and moist. Oropharynx is clear. Airway is patent. Neck is supple. Trachea is midline. There is no JVD noted. Heart was regular rate and rhythm. Lungs are clear and equal bilaterally. Abdomen is soft. Bowel sounds are normal. There is no tenderness. There is no rebound or guarding noted. Skin is warm dry. There is some mild urticaria noted over the trunk and upper extremities bilaterally. Cranial nerves II through XII are intact. There are no focal motor or sensory deficits noted. Extremities are intact. There is no calf tenderness or edema. Emergency Department Course and Treatment: Patient was given oral Benadryl, prednisone, and Pepcid. Patient was feeling somewhat better on reevaluation. Patient was given a prescription for prednisone. Patient was instructed to take Benadryl as needed. Patient was instructed to follow-up with his primary care physician in 5 to 7 days. Patient understood and was agreeable with the plan. All questions were answered. Disposition: Discharge home Impression: Allergic reaction This note was generated with [employer] dictation software. It may contain incorrect words, spelling, and punctuation that were not noted in review of the chart prior to signing ED Disposition - Plan for ED Patient: Disposition: Home or Assisted Living Diagnosis: Allergic reaction Instructions: ED General Allergic Reactions Prescriptions: predniSONE tablet 60 mg PO DAILY #12 tab Transmission Status: Pending to [id number] Referrals: Cristina Adams MD [Primary Care Provider] - 5-7 Days
[2020-07-25] MEDS: Famotidine 20 MG Tablet PO (11:02)
[2020-07-25] MEDS: predniSONE 20 MG Tablet 60 MG PO (11:02)
[2020-07-25] MEDS: DiphenhydrAMINE 25 MG Capsule PO (11:02)
[2020-07-25 13:38] VITALS: BP 116/72; PULSE 61; RESP 17; RESP 18; O2SAT 97
== END 2020-07-25 13:41 | disposition home or self-care (01) ==
PROVIDERS: Emergency Provider Emergency Medicine; PCP Internal Medicine
DX: T78.40XA Allergy, unspecified, initial encounter (principal); Z87.891 Personal history of nicotine dependence
CPT/HCPCS: 99283

== ENCOUNTER → 2021-02-05 10:12 | Outpatient (CLI) | payer OTHER, SELFPAY | PROVIDERS: PCP Internal Medicine; Visit Provider Physician Assistant | DX: R09.89 Other specified symptoms and signs involving the circulatory and respiratory systems (principal) | CPT/HCPCS: 87635; U0005; U0003 ==

== ENCOUNTER → 2021-02-13 11:20 | Outpatient (CLI) | payer OTHER, SELFPAY ==
--- NOTE | 2021-02-13 11:24 | RAD_ITS ---
INDICATION: PERSISTENT COUGH EXAMINATION/TECHNIQUE: X-RAY - XR Chest 2 Views COMPARISON: 06/16/2020. FINDINGS: The lungs are clear. The cardiomediastinal silhouette is unremarkable. No pleural effusion or pneumothorax. No acute osseous abnormalities. RAD/Chest PA and Lateral IMPRESSION: No acute radiographic abnormalities. Electronically Signed: Mike Kapadia MD at 23:08 EDT Tel , Service support ,
== END ==
PROVIDERS: PCP Family Medicine; Referring Provider Family Medicine; Visit Provider Family Medicine
DX: R05 Cough (principal)
CPT/HCPCS: 71046

== ENCOUNTER 2021-05-10 20:14 | Emergency (ER) | payer OTHER, SELFPAY ==
[2021-05-10 20:15] VITALS: BP 121/91; PULSE 80; RESP 18; TEMP 35.8; O2SAT 98; BMI 26.4
--- NOTE | 2021-05-10 20:54 | EDS_ITS ---
HPI History of Present Illness Chief Complaint: Weakness Informant: patient and spouse/S.O. Narrative Narrative: 40-year-old male presents to the emergency department stating that for the past week he has felt fatigued and weak. He states that he has been trying to stay hydrated throughout the week. Today he was helping his mom at one point when he bent over he felt lightheaded. He notes some intermittent hand paresthesias described as tingling. States he had similar occurrence of this about a year ago when his magnesium was low. States that at 1 point he was told he may have Brugada syndrome and saw a family nurse who felt that he did not have it but they are wondering if that could be part of his weakness because he has not had an EKG since October. No fevers no URI symptoms no vomiting or diarrhea. PFSH [facility] Medical History Abnormal electrocardiogram (06/16/20) Alcohol abuse Back problem Brugada syndrome Chronic back pain Encounter for screening for COVID-19 Hemangioma of bone Knee pain Lumbar strain Shoulder pain Syncope Home Medications multivitamin 1 tab PO DAILY 07/04/20 [History Last Taken Unknown] Allergy/AdvReac Type Severity Reaction Status Date / Time No Known Allergies Allergy Verified 05/10/21 20:16 Family History Father Hypertension Myocardial infarction Hyperlipemia CAD (coronary artery disease) Grandmother Alcoholism Grandfather Sudden cardiac , Onset Age: 41 Surgical History History of shoulder surgery Social History Smoking Status: Former smoker quit date: 03/23/20 pack-years: 15 alcohol intake: former year quit: 2020 substance use type: does not use what type of physical activity do you participate in: none ROS ROS ED ROS Narrative Fatigue and weakness Constitutional Constitutional ED: Denies chills or weight loss Eyes Eyes: Denies change in vision or diplopia ENT ENT ED: Denies ear pain, rhinorrhea or sore throat Cardiovascular Cardiovascular: Denies chest pain, orthopnea, palpitations or racing heartbeat Respiratory/Chest Respiratory/Chest: Denies cough, dyspnea or orthopnea Gastrointestinal Gastrointestinal: Denies abdominal pain, diarrhea, nausea or vomiting Genitourinary Genitourinary ED: Denies dysuria, hematuria or urinary frequency Musculoskeletal Musculoskeletal: Denies arthralgias or myalgias Integumentary Denies abscess or rash Neurologic Neurologic: Reports paresthesias; Denies headache(s) or weakness Psychiatric Psychiatric: Denies anxiety, depression, suicidal ideation or suicidal thoughts Endocrine Endocrinology: Denies polydipsia, polyphagia or polyuria Allergic/Immunologic Allergic/Immunologic ED: Denies mouth swelling, tongue swelling or urticaria EXAM Physical Exam Const Vital Signs: 05/10/21 20:15 05/10/21 20:35 Temperature 96.5 F L Temperature Source Temporal Pulse Rate 80 Respiratory Rate 18 Respiratory Effort Normal Respiratory Pattern Normal Blood Pressure 121/91 H Blood Pressure Mean 101 Pulse Ox 98 Oxygen Delivery Method Room Air Positive well nourished and well developed General Appearance ED: well developed HEENT Reports normocephalic, head/scalp atraumatic, TM's clear and moist mucous membranes Negative for trauma Tympanic Membrane ED: Yes TM's clear Eyes PERRL and EOMs intact bilaterally Neck no lymphadenopathy, supple and no JVD Resp normal respiratory effort and clear to auscultation bilaterally Cardio regular rate, regular rhythm and no murmurs GI normal to inspection, nondistended, normoactive bowel sounds and non-tender Palpation: soft Back/Spine no CVA tenderness and normal ROM Extremity normal to inspection General Extremety ED: Negative for edema General Extremity: Negative for edema Neuro oriented x3 and CN's II-XII intact bilaterally Sensorium / Orientation: alert Motor Exam: strength 5/5 throughout Psych mental status grossly normal Mood & Affect: Negative for depressed or tearful Skin no rashes or lesions noted and no wounds MDM MDM MDM Narrative Medical decision making narrative: Patient's blood work is essentially normal. Occluding a magnesium and TSH. Urine appears normal with a specific gravity of 1.01. He does not appear dehydrated. There is no electrolyte abnormality and he is not anemic. Organ system seem to be functioning appropriately. Wonder if this could all be due to his poor sleep. We talked about maybe trying some Unisom tonight. Return if worsening or concerns following up with primary care Lab Data Attestation: I reviewed the patient's lab results. Labs: Laboratory Results - last 24 hr 05/10/21 05/10/21 05/10/21 20:42 20:42 20:42 WBC 6.8 RBC 4.49 L Hgb 14.7 Hct 41.4 MCV 92.2 MCH 32.7 H MCHC 35.5 RDW Std Deviation 40.0 RDW Coeff of Zee 11.9 Plt Count 298 MPV 9.7 Immature Gran % (Auto) 0.300 Neut % (Auto) 62.8 Lymph % (Auto) 22.4 [place] % (Auto) 13.1 H Eos % (Auto) 0.7 Baso % (Auto) 0.7 Absolute Neuts (auto) 4.3 Absolute Lymphs (auto) 1.52 Nucleated RBC % 0 Sodium 140 Potassium 3.8 Chloride 108 H Carbon Dioxide 27.0 Anion Gap 5 BUN 19 H Creatinine 1.09 Estim Creat Clear Calc 95.95 Est GFR (MDRD) Af Amer 96 Est GFR (MDRD) Non-Af 79 BUN/Creatinine Ratio 17.4 Glucose 104 Calcium 9.2 Magnesium 2.4 Total Bilirubin 0.40 AST 19 ALT 32 Alkaline Phosphatase 68 Troponin I High Sens 3 Total Protein 7.6 Albumin 3.9 Globulin 3.7 Albumin/Globulin Ratio 1.1 TSH 0.61 Urine Color Straw Urine Clarity Clear Urine pH 6.5 Ur Specific [place] 1.010 Urine Protein Negative Urine Glucose (UA) Normal Urine Ketones Negative Urine Occult Blood Negative Urine Nitrite Negative Urine Bilirubin Negative Urine Urobilinogen Normal Ur Leukocyte Esterase Negative Urine RBC 0 SEEN Urine WBC 0 SEEN Ur Squamous Epith Cells 0 SEEN Urine Bacteria 0 SEEN Urine Mucus 0 SEEN Discharge Plan Triage Chief Complaint: Weakness ED Provider: Reji Lang Dx/Rx/DC Orders Clinical Impression: Fatigue Instructions: ED Weakness (Uncertain Cause) Prescriptions: No Action multivitamin Tablet 1 tab PO DAILY RF: 0 Primary Care Provider: Zana Abernathy Referrals: Zana Abernathy DO [Primary Care Provider] - 3-5 Days if not improving Disposition Disposition: Home, Self Care
[2021-05-10 21:00] LABS: Bacteria 0 SEEN /hpf (None Seen); Mucous, Urine 0 SEEN /hpf (<or=2+); Red Blood Cells-Urine 0 SEEN /hpf (0-5); Squamous Epithelial Cells - UA 0 SEEN /hpf (0-5); White Blood Cells 0 SEEN /hpf (0-5)
[2021-05-10 21:06] LABS: Absolute Lymphocyte Count 1.52 X10^3/uL (0.83-4.51); Absolute Neutrophil Count 4.3 X10^3/uL (2.0-7.7); Basophil# 0.05 X10^3/uL; Basophil% 0.7 % (0-1); Color, Urine Straw (Yellow); Eosinophil# 0.05 X10^3/uL; Eosinophils% 0.7 % (0-5); Glucose, Dipstick Normal (Normal); Hematocrit 41.4 % (40-54); Hemoglobin 14.7 g/dL (13.0-16.5); Ketone-Dipstick Negative (Negative); Leukocyte Esterase-Dipstick Negative /ul (Negative); Lymphocyte # 1.52 X10^3/ul (0.83-4.51); Lymphocyte % 22.4 % (19-41); Mean Corp Hgb Conc 35.5 g/dL (32-36); Mean Corpuscular Hgb 32.7 pg (27.0-32.0); Mean Corpuscular Volume 92.2 fL (80-94); Mean Platelet Vol. 9.7 fl (6.2-12.0); Monocyte# 0.89 X10^3/uL; Monocyte% 13.1 % (0-10); NRBC Flagged by Analyzer 0 % (0-5); Neutrophil # 4.27 X10^3/uL (2.7-7.7); Neutrophil % 62.8 % (47-70); Nitrite-Dipstick Negative (Negative); Occult Blood-Urine Negative /ul (Negative); Platelet Count 298 K/mm3 (150-450); Protein-Dipstick Negative (Negative); RBC Distribution Width CV 11.9 % (11.6-14.6); Red Blood Count 4.49 M/mm3 (4.6-6.2); Urine Bilirubin Dipstick Negative (Negative); Urine Clarity Clear (Clear); Urine Urobilinogen Normal (Normal); Urine pH 6.5 (5.0 - 8.0); White Blood Count 6.8 K/mm3 (4.4-11.0)
[2021-05-10 21:30] LABS: ALB/GLOB Ratio 1.1 RATIO (0.9-2.4); AST(SGOT) 19 U/L (15-37); Alanine Aminotransfer ALT/SGPT 32 U/L (16-61); Albumin, Serum 3.9 g/dL (3.2-5.0); Alkaline Phosphatase 68 U/L (45-117); Anion Gap 5 (5-15); BUN 19 mg/dL (7-18); BUN/Creat Ratio 17.4 RATIO (10-20); Calcium,Total 9.2 mg/dL (8.5-10.1); Chloride 108 mmol/L (98-107); Creatinine, Serum 1.09 mg/dL (0.70-1.30); EST Glomerular Filtration Rate 79 mL/min (>60); Est Glom Filt Rate - Afr Amer 96 mL/min (>60); Estimated Creatinine Clearance 95.95 ml/min; Globulin 3.7 g/dL (2.2-4.2); Glucose 104 mg/dL (74-106); Magnesium 2.4 mg/dL (1.6-2.6); Potassium 3.8 mmol/L (3.5-5.1); Protein, Total 7.6 g/dL (6.4-8.2); Sodium Level 140 mmol/L (136-145); Thyroid Stim Hormone (TSH) 0.61 uIU/mL (0.358-3.74); Troponin-I HS 3 pg/mL (3.0-78.0)
== END 2021-05-10 22:21 | disposition home or self-care (01) ==
PROVIDERS: Emergency Provider Emergency Medicine; PCP Family Medicine
DX: R53.83 Other fatigue (principal); R53.1 Weakness; R42 Dizziness and giddiness; R20.2 Paresthesia of skin; Z87.891 Personal history of nicotine dependence
CPT/HCPCS: 80053; 81001; 83735; 84443; 84484; 85025; 99283; A4216

== ENCOUNTER 2022-06-15 15:06 | Emergency (ER) | payer OTHER, SELFPAY ==
[2022-06-15 15:07] VITALS: BP 134/85; PULSE 98; RESP 15; TEMP 36.8; O2SAT 98; BMI 29.0
[2022-06-15 16:07] VITALS: BP 133/85; PULSE 72; RESP 14; O2SAT 93
[2022-06-15 16:23] LABS: Absolute Lymphocyte Count 1.43 X10^3/uL (0.83-4.51); Absolute Neutrophil Count 5.1 X10^3/uL (2.0-7.7); Basophil# 0.03 X10^3/uL; Basophil% 0.4 % (0-1); Eosinophil# 0.04 X10^3/uL; Eosinophils% 0.5 % (0-5); Hematocrit 42.7 % (40-54); Hemoglobin 15.3 g/dL (13.0-16.5); Lymphocyte # 1.43 X10^3/ul (0.83-4.51); Lymphocyte % 19.3 % (19-41); Mean Corp Hgb Conc 35.8 g/dL (32-36); Mean Corpuscular Hgb 32.5 pg (27.0-32.0); Mean Corpuscular Volume 90.7 fL (80-94); Mean Platelet Vol. 9.4 fl (6.2-12.0); Monocyte# 0.79 X10^3/uL; Monocyte% 10.6 % (0-10); NRBC Flagged by Analyzer 0 % (0-5); Neutrophil # 5.11 X10^3/uL (2.7-7.7); Neutrophil % 68.9 % (47-70); Platelet Count 263 K/mm3 (150-450); RBC Distribution Width CV 11.8 % (11.6-14.6); RBC Distribution Width SD 39.2 fl (35.1-43.9); Red Blood Count 4.71 M/mm3 (4.6-6.2); White Blood Count 7.4 K/mm3 (4.4-11.0)
--- NOTE | 2022-06-15 16:32 | EDS_ITS ---
HPI History of Present Illness Chief Complaint: Chest Pain Informant: patient and spouse/S.O. Narrative Narrative: Patient presents with left-sided chest pain. He was checked in his abdominal pain minutes really the left upper quadrant minimally but mostly the left chest diffusely. He has trouble describing the exact quality of pain. He states it was present when he woke up on Tuesday but it did not wake him up. He had no symptoms on Tuesday even looking back. He cannot think of any injury. He is not short of breath. If he coughs he does have some pain and he does have some pain with very deep breaths but is not coughing more than normal. No fevers or chills. The pain radiates all the way up into his left shoulder. He has chronic problems with his left shoulder and has had surgery there but thinks this is likely different. He has been eating and drinking and moving bowels completely normally. These do not in any way alter his symptoms. He has absolutely no urinary symptoms. No fever or chills. He quit smoking about 2 years ago. No history of high blood pressure diabetes cholesterol. His father had heart disease but first heart attack was not until his younger mid 60s. Patient has no recent travel surgery immobilization personal or family history of DVT or PE. He has no leg pain or swelling. [facility] Medical History Abnormal electrocardiogram (06/16/20) Alcohol abuse Back problem Brugada syndrome Chronic back pain Encounter for screening for COVID-19 Hemangioma of bone Knee pain Lumbar strain Shoulder pain Syncope Home Medications multivitamin 1 tab PO DAILY 07/04/20 [History Last Taken Unknown] magnesium 100 mg capsule 500 mg PO DAILY 06/15/22 [History Last Taken Unknown] melatonin 3 mg tablet 3 mg PO QHS 06/15/22 [History Last Taken Unknown] sertraline 50 mg tablet (Zoloft) 50 mg PO DAILY 06/15/22 [History Last Taken Unknown] Allergy/AdvReac Type Severity Reaction Status Date / Time No Known Allergies Allergy Verified 06/15/22 15:07 Family History Father Hypertension Myocardial infarction Hyperlipemia CAD (coronary artery disease) Grandmother Alcoholism Grandfather Sudden cardiac , Onset Age: 41 Surgical History History of shoulder surgery Social History Smoking Status: Former smoker quit date: 03/23/20 pack-years: 15 alcohol intake: former year quit: 2020 substance use type: does not use what type of physical activity do you participate in: none ROS ROS ED Constitutional Constitutional ED: Denies chills, fever(s) or subjective ENT ENT ED: Denies ear pain, rhinorrhea or sore throat Cardiovascular Cardiovascular: Reports as per HPI Respiratory/Chest Respiratory/Chest: Denies cough, dyspnea or sputum Gastrointestinal Gastrointestinal: Denies abdominal pain, constipation, diarrhea, melena, nausea or vomiting Genitourinary Genitourinary ED: Denies dysuria, hematuria or urinary frequency Musculoskeletal Musculoskeletal: Denies back pain, myalgias or neck pain Integumentary Denies Abrasions or rash Neurologic Neurologic: Denies paresthesias or weakness Psychiatric Psychiatric: Reports depression Endocrine Endocrinology: Denies polydipsia or polyuria Hematologic/Lymphatic Hematologic/Lymphatic: Denies easy bleeding or easy bruising Allergic/Immunologic Allergic/Immunologic ED: Denies urticaria EXAM Physical Exam Narrative Exam Narrative: Patient awake alert nontoxic in appearance sitting quietly in bed. HEENT shows no sign of trauma or pallor. No trouble swallowing. Neck shows no JVD. No pain with range of motion. No paraspinal tenderness. Eyes show no pallor or icterus. Chest is clear bilaterally. He has some reproducible discomfort with palpation of the left chest wall and some discomfort of the left chest wall when he sits up or twists. But there is no subcu air. I see no rashes. Breath sounds are completely normal and equal. He is not tachypneic nor hypoxic. Heart is regular without murmur gallop or rub. He is not tachycardic. Abdomen shows no tenderness including no left upper quadrant tenderness. No enlarged spleen or liver. Overall benign exam No CVA tenderness Extremities show no edema cords distended veins or asymmetry. No tenderness along deep venous system. Neurologically patient is awake alert without numbness tingling or weakness Skin shows no rash pallor or vesicles. Const Vital Signs: 06/15/22 15:07 06/15/22 16:07 Temperature 98.2 F Temperature Source Temporal Pulse Rate 98 72 Respiratory Rate 15 14 Blood Pressure 134/85 H 133/85 H Blood Pressure Mean 101 101 Pulse Ox 98 93 Oxygen Delivery Method Room Air Room Air MDM MDM MDM Narrative Medical decision making narrative: My independent interpretation of the patient's two-view chest x-ray shows no sign of infiltrate, pneumothorax or other acute process. Heart looks normal size. Radiology's review is normal examination of the chest. CBC including white count hemoglobin and platelets are normal. Electrolytes are normal. D-dimer is negative at less than 0.27. His troponin is negative at 3 after several days of continual symptoms. Urine is clean. I now find out from the patient and his that he has been doing push-ups over the last 2 or so weeks. He has had some muscle soreness but it has not acted like this. However, I think this very well could be causing his symptoms. Patient has had only multiple days of symptoms without acute EKG changes, troponin elevation, D-dimer elevation or abnormal x-ray. I think he is safe for discharge. I think nonsteroidals ice and rest is appropriate. If the pain worsens or he develops new symptoms they should return. He was evaluated for cardiac issues, pulmonary embolus and other illness. Lab Data Attestation: I reviewed the patient's lab results. Labs: Laboratory Results - last 24 hr 06/15/22 06/15/22 06/15/22 16:10 16:10 16:10 WBC 7.4 RBC 4.71 Hgb 15.3 Hct 42.7 MCV 90.7 MCH 32.5 H MCHC 35.8 RDW Std Deviation 39.2 RDW Coeff of Zee 11.8 Plt Count 263 MPV 9.4 Immature Gran % (Auto) 0.300 Neut % (Auto) 68.9 Lymph % (Auto) 19.3 Arthur % (Auto) 10.6 H Eos % (Auto) 0.5 Baso % (Auto) 0.4 Absolute Neuts (auto) 5.1 Absolute Lymphs (auto) 1.43 Nucleated RBC % 0 D-Dimer Quant (PE/DVT) < 0.27 L Sodium 139 Potassium 3.8 Chloride 106 Carbon Dioxide 26.0 Anion Gap 7 BUN 17 Creatinine 1.05 Estim Creat Clear Calc 98.61 Est GFR (MDRD) Af Amer 100 Est GFR (MDRD) Non-Af 82 BUN/Creatinine Ratio 16.2 Glucose 95 Calcium 9.2 Troponin I High Sens Urine Color Urine Clarity Urine pH Ur Specific [place] Urine Protein Urine Glucose (UA) Urine Ketones Urine Occult Blood Urine Nitrite Urine Bilirubin Urine Urobilinogen Ur Leukocyte Esterase Urine RBC Urine WBC Ur Squamous Epith Cells Urine Bacteria Urine Mucus 06/15/22 06/15/22 16:10 16:34 WBC RBC Hgb Hct MCV MCH MCHC RDW Std Deviation RDW Coeff of Zee Plt Count MPV Immature Gran % (Auto) Neut % (Auto) Lymph % (Auto) Arthur % (Auto) Eos % (Auto) Baso % (Auto) Absolute Neuts (auto) Absolute Lymphs (auto) Nucleated RBC % D-Dimer Quant (PE/DVT) Sodium Potassium Chloride Carbon Dioxide Anion Gap BUN Creatinine Estim Creat Clear Calc Est GFR (MDRD) Af Amer Est GFR (MDRD) Non-Af BUN/Creatinine Ratio Glucose Calcium Troponin I High Sens 3 Urine Color Yellow Urine Clarity Clear Urine pH 7.0 Ur Specific [place] 1.010 Urine Protein Negative Urine Glucose (UA) Normal Urine Ketones 15 H Urine Occult Blood Negative Urine Nitrite Negative Urine Bilirubin Negative Urine Urobilinogen Normal Ur Leukocyte Esterase Negative Urine RBC 0 SEEN Urine WBC 0 SEEN Ur Squamous Epith Cells 0 SEEN Urine Bacteria 0 SEEN Urine Mucus 0 SEEN Radiography Diagnostic Testing: Clinical Impression(s) from Imaging Studies Chest X-Ray 06/15/22 16:46 IMPRESSION: Normal x-ray examination of the chest. Electronically Signed: Quinn Donaldson MD at 17:49 EST Reading Location ID and State: [address] [place] [address] , Service support , EKG Initial EKG: Comments: My independent interpretation of an EKG done for left-sided chest pain shows a normal sinus rhythm with a rate of 64. No ventricular ectopy is seen. Incomplete right bundle branch block with secondary changes but no evidence of acute ST elevation or depression consistent with infarct or ischemia. IL interval, QRS duration and QTc are all normal. Discharge Plan Triage Chief Complaint: Chest Pain Other Complaint: Abd Pain ED Provider: Etienne San Dx/Rx/DC Orders Clinical Impression: Left-sided chest pain Instructions: ED Chest Pain, Uncertain Cause Prescriptions: No Action multivitamin Tablet 1 tab PO DAILY melatonin 3 mg Tablet 3 mg PO QHS magnesium 100 mg Capsule 500 mg PO DAILY sertraline [Zoloft] 50 mg Tablet 50 mg PO DAILY Primary Care Provider: Zana Abernathy Referrals: Zana Abernathy DO [Primary Care Provider] - 3-5 Days Disposition Disposition: Home, Self Care
--- NOTE | 2022-06-15 16:34 | EKG12_ITS ---
Test Reason : CP Blood Pressure : / mmHG Vent. Rate : 064 BPM Atrial Rate : 064 BPM P-R Int : 176 ms QRS Dur : 108 ms QT Int : 394 ms P-R-T Axes : 025 -14 002 degrees QTc Int : 406 ms Normal sinus rhythm Incomplete right bundle branch block Borderline ECG Confirmed by ERNESTINE HOWARD, RADHA ([id number]), features editor ALBA LORA ([id number]) on 06/16/2022 9:17:18 AM Referred By: Confirmed By:RADHA SINHA MD
[2022-06-15 16:37] LABS: Anion Gap 7 (5-15); BUN 17 mg/dL (7-18); BUN/Creat Ratio 16.2 RATIO (10-20); Calcium,Total 9.2 mg/dL (8.5-10.1); Chloride 106 mmol/L (98-107); Creatinine, Serum 1.05 mg/dL (0.70-1.30); EST Glomerular Filtration Rate 82 mL/min (>60); Est Glom Filt Rate - Afr Amer 100 mL/min (>60); Estimated Creatinine Clearance 98.61 ml/min; Glucose 95 mg/dL (74-106); Potassium 3.8 mmol/L (3.5-5.1); Sodium Level 139 mmol/L (136-145)
[2022-06-15 16:44] LABS: Bacteria 0 SEEN /hpf (None Seen); Mucous, Urine 0 SEEN /hpf (<or=2+); Red Blood Cells-Urine 0 SEEN /hpf (0-5); Squamous Epithelial Cells - UA 0 SEEN /hpf (0-5); White Blood Cells 0 SEEN /hpf (0-5)
--- NOTE | 2022-06-15 16:46 | RAD_ITS ---
STUDY: X-RAY CHEST REASON FOR EXAM: Male, 41 years old. cp TECHNIQUE: PA and lateral COMPARISON: February 13, 2021 FINDINGS: The lungs are clear and expanded. There is no demonstrated pleural abnormality. Normal size heart. Normal mediastinum and jenny. Normal visualized pulmonary arteries. Normal visualized aortic arch and descending thoracic aorta. Normal visualized thoracic spine. Normal visualized ribs, clavicles, and shoulders. There is no demonstrated abnormality of the visualized soft tissue structures of the upper abdomen. No significant change since prior exam RAD/Chest PA and Lateral IMPRESSION: Normal x-ray examination of the chest. Electronically Signed: Quinn Donaldson MD at 17:49 EST ,
[2022-06-15 17:03] LABS: Color, Urine Yellow (Yellow); Glucose, Dipstick Normal (Normal); Ketone-Dipstick 15 mg/dl (Negative); Leukocyte Esterase-Dipstick Negative /ul (Negative); Nitrite-Dipstick Negative (Negative); Occult Blood-Urine Negative /ul (Negative); Protein-Dipstick Negative (Negative); Urine Bilirubin Dipstick Negative (Negative); Urine Clarity Clear (Clear); Urine Urobilinogen Normal (Normal)
[2022-06-15 17:10] LABS: D-Dimer Quantitative (DVT/PE) < 0.27 FEU/ug/m (0.27-0.49)
[2022-06-15 17:21] LABS: Troponin-I HS 3 pg/mL (3.0-78.0)
[2022-06-15 19:08] VITALS: BP 119/86; PULSE 96; RESP 95; O2SAT 20
[2022-06-15] MEDS: Naproxen 250 MG Tablet 500 MG PO (19:11)
--- NOTE | 2022-06-15 19:14 | NURSING ---
Came out from stroke and afib patients and break out man told this nurse the patient has called out 8 times in twenty minutes in pain. States patient is being dicharged. Told Dr San and requested PO meds of rx written for dc and okay given. Patient doubled over in pain in room and ecg requested. Dr San is aware and CTA ordered. During this time, called in and talked to break out man stating no one is taking care of the patient. Patient is updated on plan.
--- NOTE | 2022-06-15 19:16 | EKG12_ITS ---
Test Reason : CP Blood Pressure : / mmHG Vent. Rate : 091 BPM Atrial Rate : 091 BPM P-R Int : 164 ms QRS Dur : 104 ms QT Int : 360 ms P-R-T Axes : 061 -33 012 degrees QTc Int : 442 ms Normal sinus rhythm Left axis deviation Abnormal ECG Confirmed by ERNESTINE HOWARD, RADHA ([id number]), commissioning editor ALBA LORA ([id number]) on 06/16/2022 9:21:42 AM Referred By: PL Confirmed By:RADHA SINHA MD
--- NOTE | 2022-06-15 19:19 | CT_ITS ---
STUDY: CTA CHEST REASON FOR EXAM: Male, 41 years old. PE RADIATION DOSAGE (If Supplied By Facility): CTDIvol = ( 10.55 ) mGy, DLP = ( 499.62 ) mGycm TECHNIQUE: The examination was performed with the intravenous administration of IV 100mL [id number]-[id number]. Post-processing of the angiographic images was performed, with multiplanar reformation and 3D reconstruction. Individualized dose optimization techniques were used for this CT. COMPARISON: June 16, 2020 FINDINGS: Normal enhancement of the main pulmonary artery and right and left pulmonary arteries. Normal enhancement of the bilateral peripheral pulmonary arteries. There is no demonstrated pulmonary embolism. Normal thoracic aorta and visualized great vessels. There is no demonstrated aortic dissection. Normal heart and pericardium. Normal mediastinum. Normal hilar regions. Normal visualized trachea and bronchi. The lungs are well expanded. Normal pulmonary parenchyma. Normal pleura. Normal chest wall structures. Interosseous hemangioma within the T5 vertebral body. Normal visualized upper abdomen. CT/CTA Chest W/WO Contrast IMPRESSION: Normal CTA chest examination, without a demonstrated pulmonary embolism or arterial dissection. Incidental finding of interosseous hemangioma of the T5 vertebral body Electronically Signed: Quinn Donaldson MD at 20:08 EST ,
[2022-06-15] MEDS: Morphine 4 MG/ML Syringe IM (19:27)
[2022-06-15] MEDS: HYDROmorphone 0.5 MG/0.5 ML SYRINGE IV (20:37)
== END 2022-06-15 20:40 | disposition home or self-care (01) ==
PROVIDERS: Emergency Provider Emergency Medicine; PCP Family Medicine; Visit Provider Emergency Medicine
DX: R07.9 Chest pain, unspecified (principal); F32.A Depression, unspecified; Z23 Encounter for immunization; Z79.899 Other long term (current) drug therapy; Z87.891 Personal history of nicotine dependence
CPT/HCPCS: 71046; 71275; 80048; 81001; 84484; 85025; 85379; 90471; 93005; 96372; 96374; 99285; J7030; Q9967